=== PATIENT | female | born 1985 | race Caucasian/White ===

== ENCOUNTER 2024-08-16 11:59 | Inpatient (IN) ==
--- NOTE | 2024-08-16 12:08 | ED Triage Note ---
Date of Service August 16, 2024 Provider in Triage Author: Polina Feliciano History of Present Illness This patient was briefly evaluated while in triage. An abbreviated physical exam was performed. This patient is a 39-year-old Female who presents to the ED for evaluation of dyspnea. Pt. referred by PCP. Had leg surgery 06/21/2024. States has been feeling more short of breath over the past few weeks. States was seen by PCP today and referred for possible PE. Physical Exam VITALS: Vitals are noted on the nurse's note and reviewed by myself. GENERAL: This is a 39 year old female, in no acute distress, nondiaphoretic, well-developed well-nourished. SKIN: No obvious rashes, edema, erythema HEAD: Normocephalic atraumatic. EYES: Conjunctivae without injection, sclerae without icterus. NECK: No JVD. LUNGS: No retractions or accessory muscle use. MUSCULOSKELETAL: Normal gait. NEURO: Patient was alert and oriented to person place and time. No focal neurological deficits. Initial orders for labs and / or imaging were placed and patient was placed in the waiting area until a bed is available. Please see further documentation for the full ED course.
--- NOTE | 2024-08-16 12:23 | Emergency Department Note ---
Impression & Plan Sepsis, Multifocal pneumonia, Acute hyponatremia, Acute hypokalemia, Non-ST elevation AL (NSTEMI), Elevated procalcitonin, BRIE (acute kidney injury) ED Provider Note HISTORY OF PRESENT ILLNESS: Patient is a 39-year-old female presenting with shortness of breath and reported hypoxia. Patient was seen at her primary care provider's office today for follow-up because she thought she had mrid-ibdo-gma-mouth disease. She reports that she has been having the sores in her throat and her daughter was having ijhq-gowe-blt-mouth disease. She reports she had sores for about 8 days. Reports that at her follow-up appointment, her doctor was concerned for her breathing and noted that she was slightly hypoxic and referred her to the emergency department. Patient had left ankle repair surgery on 06/21/2024. She denies any OCP use. Denies any DVT or PE history. Reports she has been having shortness of breath over the last 4 days. Reports she sounds wheezy at nighttime per her . She does report she has had a cough of white sputum over the last 3 days. She had a fever of 102 that would not go down with antipyretics over the weekend, per the patient. Her last dose of Tylenol was around 6 AM. She denies any chest pain but does report feeling short of breath. Denies any abdominal pain, nausea or vomiting. Reports feeling lightheaded and having diffuse bodyaches. ROS: as above PHYSICAL EXAM: Constitutional: Patient appears in no acute distress. HENT: Head: Normocephalic and atraumatic. Eyes: EOMI, PERRL Mouth/Throat: Mucous membranes moist. Uvula midline. No tonsillar hypertrophy or exudate. Neck: Trachea midline. Neck supple. Cardiovascular: Tachycardic with regular rhythm. No murmurs, rubs or gallops. Intact distal pulses. Pulmonary/Chest: Conversationally dyspneic. Breath sounds clear and equal bilaterally. No wheezes or rales. Abdominal: Abdomen soft, no tenderness, rebound or guarding. Musculoskeletal: No edema, tenderness or deformity noted. Left foot is in a walking boot. Skin: Warm and dry. No rash, erythema, pallor or cyanosis Psychiatric: Appropriate mood and affect for situation. Neurological: Alert and keenly responsive. CN II-XII grossly intact, moving all extremities equally and fully. MDM: - Vitals signs showed hypotensive and tachycardic. - History obtained via patient. History as above. - Chronic conditions affecting care: None - Differential diagnoses include, but are not limited to: Congestive heart failure; acute coronary syndrome; COPD/asthma exacerbation; pulmonary edema; pulmonary embolism; pneumonia; pneumothorax; viral syndrome - Order placed for continuous cardiac monitoring. At this time, monitor showed rate of 125 bpm with normal sinus rhythm, per my interpretation. - External medical records reviewed. Surgery operative report dated 06/21/2024 was reviewed. Patient had a distal left fibular fracture and underwent ORIF. - EKG interpreted by myself showed normal sinus rhythm. Rate tachycardic at 121 bpm. QT 298. No acute ischemic changes. - Laboratory workup interpreted by myself showed leukocytosis (WBC 11.9) with neutrophil predominance; elevated INR (1.3); hyponatremia (Na 126); normal BNP; normal lactate; hypokalemia (K 3.3); elevated creatinine (Cr 1.64); elevated troponin (48.4); negative hCG; elevated procalcitonin (15.20) - Blood cultures obtained - CT PE showed multifocal airspace opacity consistent with multifocal pneumonia. Trace right pleural effusion. No evidence of PE. - Patient started on IV zosyn for antibiotic coverage - NSTEMI likely type II in etiology from patient's increased respiratory effort and in the setting of her pneumonia. - Given 1500 cc NS. Patient's sepsis fluid volume calculation based on ideal body weight is 1908.90 mL. - Discussion was had with onsite case manager about patient's case and need for admission - Hospitalist, Dr. Jane, consulted for admission - Patient admitted to [facility] service for further evaluation and management. I have personally spent 42 minutes of critical care time in the direct management of this patient. This includes bedside care, interpretation of diagnostic studies, and testing, discussion with consultants, patient, and family members, and other required patient management activities. This 42 minutes is in excess of all separately billable procedures. ASSESSMENT AND PLAN: Diagnosis: Sepsis; multifocal pneumonia; acute hyponatremia; hypokalemia; BRIE; elevated procalcitonin; NSTEMI Plan: Admit Past Med/Surg History Problem List (Updated 08/16/24 @ 15:13 by Precious Quinn MD) BRIE (acute kidney injury) (Acute) Elevated procalcitonin (Acute) Non-ST elevation AL (NSTEMI) (Acute) Acute hypokalemia (Acute) Acute hyponatremia (Acute) Multifocal pneumonia (Acute) Sepsis (Acute) Varicella hx, as child Medical History Anemia hx Anxiety and depression Heart murmur No longer detectable History of COVID-19 summer 2021>no residual symptoms Migraines hx Surgical History History of colposcopy Previous section x 2 [place] teeth extracted Family History Grandmother (Maternal) Breast cancer Denies family history of Ovarian cancer Colorectal cancer Social History Smoking Status: Never smoker Second Hand Exposure: No; Do You Dip or Chew Tobacco: No; Hx Alcohol Use: Yes Alcohol type: wine Hx Substance Use: No Preferred Language: Gabonese Communication Ability: Effective 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 Beliefs That Will Affect Care: None Current Living Situation: Spouse Feels Safe at Home: Yes Assistive Devices: Contacts and Glasses Allergies Allergies Allergy/AdvReac Type Severity Reaction Status Date / Time No Known Allergies Allergy Verified 06/21/24 05:26 Home Meds Home Medications Medication Instructions Recorded Confirmed levonorgestrel 21 mcg/24 hr (up to 1 device intrauterine UD 08/26/19 08/16/24 8 years) 52 mg intrauterine device (Mirena) bupropion HCl 150 mg 24 hr tablet, 150 mg PO QAM 06/17/24 08/16/24 extended release bupropion HCl 300 mg 24 hr tablet, 300 mg PO QAM 06/17/24 08/16/24 extended release Results & Data (ED) Vital Signs Vital Signs - 24 hr 08/16/24 12:06 08/16/24 12:22 08/16/24 12:24 Temperature 37.0 C Temperature Source Temporal Artery Scan Pulse Rate 122 H 121 H 120 H Pulse Rate [Apical] Pulse Rate from SpO2 Sensor 120 H Pulse Strength Normal Respiratory Rate 16 25 H Respiratory Effort / Characteristics Non-Labored Spontaneous Respiratory Depth Normal Respiratory Pattern Regular Blood Pressure 94/52 L Blood Pressure [Right Arm] Blood Pressure Mean 66 Blood Pressure Mean [Right Arm] Blood Pressure Position Sitting Pulse Oximetry 95 95 Oxygen Delivery Method Room Air Sepsis Recent Fever Within 48 Hours No Sepsis New/Unexplained Change in Mental Status No Sepsis Action Taken by Nursing Adv Provider Notified 08/16/24 12:36 08/16/24 12:39 08/16/24 13:00 Temperature Temperature Source Pulse Rate 114 H 116 H Pulse Rate [Apical] Pulse Rate from SpO2 Sensor 114 H 116 H Pulse Strength Respiratory Rate 25 H 28 H Respiratory Effort / Characteristics Respiratory Depth Respiratory Pattern Blood Pressure 113/67 Blood Pressure [Right Arm] Blood Pressure Mean 80 Blood Pressure Mean [Right Arm] Blood Pressure Position Pulse Oximetry 93 94 Oxygen Delivery Method Sepsis Recent Fever Within 48 Hours Sepsis New/Unexplained Change in Mental Status Sepsis Action Taken by Nursing 08/16/24 15:07 Temperature Temperature Source Pulse Rate Pulse Rate [Apical] 123 H Pulse Rate from SpO2 Sensor Pulse Strength Respiratory Rate 26 H Respiratory Effort / Characteristics Labored Respiratory Depth Respiratory Pattern Regular Blood Pressure Blood Pressure [Right Arm] 133/74 Blood Pressure Mean Blood Pressure Mean [Right Arm] 93 Blood Pressure Position Pulse Oximetry 93 Oxygen Delivery Method Room Air Sepsis Recent Fever Within 48 Hours Sepsis New/Unexplained Change in Mental Status Sepsis Action Taken by Nursing Laboratory Data 08/16/24 12:22 08/16/24 12:22 Lab Results 08/16/24 08/16/24 08/16/24 Range/Units 12:22 12:23 12:28 WBC 11.71 H (4.8-10.8) K/ul RBC 3.72 L (4.20-5.40) M/uL Hgb 11.0 L (12.0-16.0) g/dl POC Hgb 12.2 (12.0-16.0) g/dl Hct 31.6 L (37.0-47.0) % POC Hct 36 L (37-47) % MCV 84.9 (80.0-100.0) fL MCH 29.6 (25.0-34.0) pg MCHC 34.8 (32.0-36.0) g/dL RDW Std Deviation 40.9 (36.4-46.3) fL RDW Coeff of Sammy 13.2 (11.5-14.5) % Plt Count 168 (130-400) K/uL MPV 10.5 (9.4-12.4) fL Immature Gran % (Auto) 1.1 % Neut % (Auto) 93.3 % Lymph % (Auto) 2.0 % [place] % (Auto) 3.0 % Eos % (Auto) 0.0 % Baso % (Auto) 0.6 % Neut # (Auto) 10.93 H (1.40-6.50) K/uL Lymph # (Auto) 0.23 L (1.20-3.40) K/uL [place] # (Auto) 0.35 (0.11-0.59) K/uL Eos # (Auto) 0.00 (0.00-0.50) K/uL Baso # (Auto) 0.07 (0.00-0.20) K/uL Immature Gran # (Auto) 0.13 (0.01-0.20) K/uL Toxic Granulation 1+ Polychromasia 1+ Acanthocytes (Spur) 1+ PT 14.0 H (9.0-12.0) Seconds INR 1.3 H (0.9-1.1) APTT 27 (21-31) Seconds PTT Ratio 1.0 POC Sodium 127 L (135-144) mmol/L Sodium 126 L (136-145) mmol/L POC Potassium 3.3 (3.3-5.0) mmol/L Potassium 3.3 L (3.5-5.1) mmol/L POC Chloride 91 L (101-112) mmol/L Chloride 91 L (98-107) mmol/L Carbon Dioxide 22 (21-32) mmol/L POC Total CO2 21 L (24-31) mmol/L Anion Gap 13 H (3-11) POC Anion Gap 19.0 (16-25) mmol/L POC BUN 24 H (7-18) mg/dl BUN 28 H (6-23) mg/dl Creatinine 1.64 H (0.6-1.2) mg/dl POC Creatinine 1.9 H (0.6-1.3) mg/dl Est Cr Clr Drug Dosing 52.5 ml/min eGFR 40.34 BUN/Creatinine Ratio 17.1 (10-20) Glucose 95 (70-99(Fasting)) mg/dl POC Glucose (other) 95 (70-99) mg/dl Lactate (0.4-2.0) mmol/L Calcium 8.4 L (8.6-10.3) mg/dl POC Ioniz Calcium Rylee 1.06 L (1.12-1.32) mmol/l Magnesium 1.8 (1.7-2.4) mg/dl Total Bilirubin 1.4 H (0.2-1.0) mg/dl AST 33 (13-39) U/L ALT 24 (7-52) U/L Alkaline Phosphatase 107 H (34-104) U/L Troponin I High Sens 48.8 H (0-14) pg/ml B-Natriuretic Peptide (0-100) pg/ml Total Protein 6.9 (6.0-8.3) gm/dl Albumin 3.5 (3.4-5.0) gm/dl Globulin 3.4 (2.5-4.0) gm/dl Albumin/Globulin Ratio 1.0 (0.9-2) Procalcitonin (0-0.5) ng/ml HCG, Qual Negative (Negative) Adenovirus (PCR) Not Detected (NotDetected) B. pertussis DNA (PCR) Not Detected (NotDetected) B.parapertussis DNA PCR Not Detected (NotDetected) C. pneumoniae DNA (PCR) Not Detected (NotDetected) Coronavirus OC43 (PCR) Not Detected (NotDetected) Coronavirus HKU1 (PCR) Not Detected (NotDetected) Coronavirus 229E (PCR) Not Detected (NotDetected) SARS-CoV-2 (PCR) Not Detected (NotDetected) Coronavirus NL63 (PCR) Not Detected (NotDetected) Human Metapneumovir PCR Not Detected (NotDetected) Influenza Type A (PCR) Not Detected (NotDetected) Influenza Type B (PCR) Not Detected (NotDetected) M. pneumoniae (PCR) Not Detected (NotDetected) Parainfluenza 1 (PCR) Not Detected (NotDetected) Parainfluenza 2 (PCR) Not Detected (NotDetected) Parainfluenza 3 (PCR) Not Detected (NotDetected) Parainfluenza 4 (PCR) Not Detected (NotDetected) RSV (PCR) Not Detected (NotDetected) Entero/Rhino (PCR) Not Detected (NotDetected) 08/16/24 08/16/24 08/16/24 Range/Units 13:05 13:25 14:27 WBC (4.8-10.8) K/ul RBC (4.20-5.40) M/uL Hgb (12.0-16.0) g/dl POC Hgb (12.0-16.0) g/dl Hct (37.0-47.0) % POC Hct (37-47) % MCV (80.0-100.0) fL MCH (25.0-34.0) pg MCHC (32.0-36.0) g/dL RDW Std Deviation (36.4-46.3) fL RDW Coeff of Sammy (11.5-14.5) % Plt Count (130-400) K/uL MPV (9.4-12.4) fL Immature Gran % (Auto) % Neut % (Auto) % Lymph % (Auto) % [place] % (Auto) % Eos % (Auto) % Baso % (Auto) % Neut # (Auto) (1.40-6.50) K/uL Lymph # (Auto) (1.20-3.40) K/uL [place] # (Auto) (0.11-0.59) K/uL Eos # (Auto) (0.00-0.50) K/uL Baso # (Auto) (0.00-0.20) K/uL Immature Gran # (Auto) (0.01-0.20) K/uL Toxic Granulation Polychromasia Acanthocytes (Spur) PT (9.0-12.0) Seconds INR (0.9-1.1) APTT (21-31) Seconds PTT Ratio POC Sodium (135-144) mmol/L Sodium (136-145) mmol/L POC Potassium (3.3-5.0) mmol/L Potassium (3.5-5.1) mmol/L POC Chloride (101-112) mmol/L Chloride (98-107) mmol/L Carbon Dioxide (21-32) mmol/L POC Total CO2 (24-31) mmol/L Anion Gap (3-11) POC Anion Gap (16-25) mmol/L POC BUN (7-18) mg/dl BUN (6-23) mg/dl Creatinine (0.6-1.2) mg/dl POC Creatinine (0.6-1.3) mg/dl Est Cr Clr Drug Dosing ml/min eGFR BUN/Creatinine Ratio (10-20) Glucose (70-99(Fasting)) mg/dl POC Glucose (other) (70-99) mg/dl Lactate 1.8 (0.4-2.0) mmol/L Calcium (8.6-10.3) mg/dl POC Ioniz Calcium Rylee (1.12-1.32) mmol/l Magnesium (1.7-2.4) mg/dl Total Bilirubin (0.2-1.0) mg/dl AST (13-39) U/L ALT (7-52) U/L Alkaline Phosphatase (34-104) U/L Troponin I High Sens (0-14) pg/ml B-Natriuretic Peptide 72 (0-100) pg/ml Total Protein (6.0-8.3) gm/dl Albumin (3.4-5.0) gm/dl Globulin (2.5-4.0) gm/dl Albumin/Globulin Ratio (0.9-2) Procalcitonin 15.20 H (0-0.5) ng/ml HCG, Qual (Negative) Adenovirus (PCR) (NotDetected) B. pertussis DNA (PCR) (NotDetected) B.parapertussis DNA PCR (NotDetected) C. pneumoniae DNA (PCR) (NotDetected) Coronavirus OC43 (PCR) (NotDetected) Coronavirus HKU1 (PCR) (NotDetected) Coronavirus 229E (PCR) (NotDetected) SARS-CoV-2 (PCR) (NotDetected) Coronavirus NL63 (PCR) (NotDetected) Human Metapneumovir PCR (NotDetected) Influenza Type A (PCR) (NotDetected) Influenza Type B (PCR) (NotDetected) M. pneumoniae (PCR) (NotDetected) Parainfluenza 1 (PCR) (NotDetected) Parainfluenza 2 (PCR) (NotDetected) Parainfluenza 3 (PCR) (NotDetected) Parainfluenza 4 (PCR) (NotDetected) RSV (PCR) (NotDetected) Entero/Rhino (PCR) (NotDetected) Administered Medications Discontinued Medications Azithromycin (Azithromycin 250 Mg Tab) 500 mg PO NOW ONE Stop: 08/16/24 13:05 Last Admin: 08/16/24 13:43 Dose: Not Given Documented By: FRANCISCO Ceftriaxone Sodium (Rocephin) 2,000 mg in 50 mls @ 100 mls/hr IV NOW STA Stop: 08/16/24 13:33 Last Admin: 08/16/24 13:43 Dose: Not Given Documented By: FRANCISCO Piperacillin Sod/Tazobactam Sod (Zosyn) 4.5 gm in 100 mls @ 200 mls/hr IV NOW ONE; Protocol Stop: 08/16/24 13:36 Last Infusion: 08/16/24 15:08 Dose: Infused Documented By: Admin: 08/16/24 14:29 Dose: 200 mls/hr Documented By: FRANTZ Sodium Chloride (Nss) 1,000 mls @ 999 mls/hr IV .Q1H1M ONE Stop: 08/16/24 14:08 Last Infusion: 08/16/24 15:08 Dose: Infused Documented By: Admin: 08/16/24 13:32 Dose: 999 mls/hr Documented By: FRANCISCO Sodium Chloride (Nss) 500 mls @ 999 mls/hr IV .Q31M ONE Stop: 08/16/24 13:38 Last Infusion: 08/16/24 14:29 Dose: Infused Documented By: Admin: 08/16/24 13:32 Dose: 999 mls/hr Documented By: FRANCISCO Ioversol (Optiray 320 125ml) 118 ml IV ONCE ONE Stop: 08/16/24 12:46 Last Admin: 08/16/24 12:45 Dose: 118 ml Documented By: GALEN Imaging Data Radiologist's Impression: Chest CTA 08/16/24 12:08 CT angio chest PE protocol CLINICAL HISTORY: Dyspnea, tachycardia, recent surgery TECHNIQUE: Multidetector row helical CT of the chest was performed with angiographic protocol. Coronal and sagittal reformations were obtained. Coronal and sagittal MIPS were obtained from the axial data set and were submitted for review. Automated dose lowering techniques and/or adjustment according to patient size were utilized for this exam. CT DOSE: 630.05 mGy.cm Comparison: None available at the time of this dictation. FINDINGS: Lungs and pleura: Multifocal airspace opacities are seen most prominently in the right lung and lingula. Trace right pleural effusion. Heart and pericardium: Heart size is normal. No pericardial effusion. Vessels: No evidence of pulmonary embolism. Mediastinum and yesenia: Subcentimeter lymph nodes are seen. Chest wall and lower neck: Small thyroid nodules are noted which do not require follow-up by ACR criteria. Subcentimeter subcentimeter cervical nodes are seen. Abdomen: Unremarkable. Bones: Minimal degenerative changes are seen. IMPRESSION: 1. Multifocal airspace opacities are seen compatible with multifocal pneumonia. Follow-up to resolution is recommended. 2. No evidence of pulmonary bolus. 3. Trace right pleural effusion. ACT 112: Negative or not required by law. Electronically signed by: Prince Kumar M.D. 08/16/2024 12:59 PM Discharge Plan Visit Data Chief Complaint: Referred by Doctor Stated Complaint: PULMONARY EMBOLSIM ED Provider: Precious Quinn Discharge Problem: Sepsis, Multifocal pneumonia, Acute hyponatremia, Acute hypokalemia, Non-ST elevation AL (NSTEMI), Elevated procalcitonin, BRIE (acute kidney injury) Forms Stand Alone Forms: [employer] Prescriptions Prescriptions: No Action Mirena 20 mcg/24 hours (5 yrs) 52 mg intrauterine device 1 device IU UD bupropion HCl 300 mg tablet extended release 24 hr 300 mg PO QAM bupropion HCl 150 mg tablet extended release 24 hr 150 mg PO QAM Referrals Referrals: Zane Peña [Primary Care Provider] -
[2024-08-16] MEDS: OPTIRAY 320 125ml IV ONE (12:45)
[2024-08-16 12:47] LABS: iSTAT Creatinine 1.9 mg/dl (0.6-1.3); iSTAT Hemoglobin 12.2 g/dl (12.0-16.0); iSTAT Ionized Calcium 1.06 mmol/l (1.12-1.32); iSTAT Potassium 3.3 mmol/L (3.3-5.0)
[2024-08-16 12:59] LABS: Pregnancy Test, Serum Negative (Negative)
--- NOTE | 2024-08-16 13:00 | CT Scan Report ---
CT angio chest PE protocol CLINICAL HISTORY: Dyspnea, tachycardia, recent surgery TECHNIQUE: Multidetector row helical CT of the chest was performed with angiographic protocol. Vieira l and sagittal reformations were obtained. Coronal and sagittal MIPS were obtained from the axial dee a set and were submitted for review. Automated dose lowering techniques and/or adjustment according to patient size were utilized for this exam. CT DOSE: 630.05 mGy.cm Comparison: None available at the time of this dictation. FINDINGS: Lungs and pleura: Multifocal airspace opacities are seen most prominently in the right lung and lingu la. Trace right pleural effusion. Heart and pericardium: Heart size is normal. No pericardial effusion. Vessels: No evidence of pulmonary embolism. Mediastinum and yesenia: Subcentimeter lymph nodes are seen. Chest wall and lower neck: Small thyroid nodules are noted which do not require follow-up by ACR bernice martinez. Subcentimeter subcentimeter cervical nodes are seen. Abdomen: Unremarkable. Bones: Minimal degenerative changes are seen. IMPRESSION: 1. Multifocal airspace opacities are seen compatible with multifocal pneumonia. Follow-up to [facility] ion is recommended. 2. No evidence of pulmonary bolus. 3. Trace right pleural effusion. ACT 112: Negative or not required by law. Electronically signed by: Prince Kumar M.D. 08/16/2024 12:59 PM
[2024-08-16 13:14] LABS: Hematocrit (blood only) 31.6 % (37.0-47.0); Mean Corpuscular Hemoglobin 29.6 pg (25.0-34.0); Mean Corpuscular Hgb Conc 34.8 g/dL (32.0-36.0); Mean Corpuscular Volume 84.9 fL (80.0-100.0); Mean Platelet Volume 10.5 fL (9.4-12.4); Platelet Count 168 K/uL (130-400); RDW Coefficient of Variation 13.2 % (11.5-14.5); RDW Standard Deviation 40.9 fL (36.4-46.3); Red Blood Count 3.72 M/uL (4.20-5.40); White Blood Count 11.71 K/ul (4.8-10.8)
[2024-08-16 13:15] LABS: Acanthocytes 1+; Basophils # (auto) 0.07 K/uL (0.00-0.20); Basophils % (auto) 0.6 %; Immature Granulocytes # (auto) 0.13 K/uL (0.01-0.20); Immature Granulocytes % (auto) 1.1 %; Lymphocytes # (auto) 0.23 K/uL (1.20-3.40); Monocytes # (auto) 0.35 K/uL (0.11-0.59); Neutrophils # (auto) 10.93 K/uL (1.40-6.50); Neutrophils % (auto) 93.3 %; Polychromasia 1+; Toxic Granulation 1+
[2024-08-16 13:16] LABS: INR 1.3 (0.9-1.1); Partial Thromboplastin Time 27 Seconds (21-31)
[2024-08-16 13:17] LABS: Albumin Level 3.5 gm/dl (3.4-5.0); BUN Creatinine Ratio 17.1 (10-20); Bilirubin,Total 1.4 mg/dl (0.2-1.0); Calcium 8.4 mg/dl (8.6-10.3); Creatinine Clr Calc Pharmacy 52.5 ml/min; Globulin 3.4 gm/dl (2.5-4.0); Potassium 3.3 mmol/L (3.5-5.1); Total Protein 6.9 gm/dl (6.0-8.3)
[2024-08-16 13:23] LABS: Troponin I High Sensitivity 48.8 pg/ml (0-14)
[2024-08-16] MEDS: SODIUM CHLORIDE 0.9% 500 ML IV ONE (13:32)
[2024-08-16] MEDS: SODIUM CHLORIDE 0.9% 1,000 ML IV ONE (13:32)
[2024-08-16] MEDS: AZITHROMYCIN 250 MG TAB PO ONE (13:43)
[2024-08-16] MEDS: cefTRIAXone SODIUM 2,000 MG/50 ML BAG IV STA (13:43)
[2024-08-16 14:17] LABS: Magnesium 1.8 mg/dl (1.7-2.4)
[2024-08-16 14:18] LABS: Adenovirus PCR Not Detected (NotDetected); Bordetella parapertussis PCR Not Detected (NotDetected); Bordetella pertussis PCR Not Detected (NotDetected); Chlamydia pneumoniae PCR Not Detected (NotDetected); Coronavirus 229E PCR Not Detected (NotDetected); Coronavirus CoV-2 (COVID19)PCR Not Detected (NotDetected); Coronavirus HKU1 PCR Not Detected (NotDetected); Coronavirus NL63 PCR Not Detected (NotDetected); Coronavirus OC43PCR Not Detected (NotDetected); Human Metapneumovirus PCR Not Detected (NotDetected); Influenza A PCR Not Detected (NotDetected); Influenza B PCR Not Detected (NotDetected); Mycoplasma pneumoniae PCR Not Detected (NotDetected); Parainfluenza Virus 1 PCR Not Detected (NotDetected); Parainfluenza Virus 2 PCR Not Detected (NotDetected); Parainfluenza Virus 3 PCR Not Detected (NotDetected); Parainfluenza Virus 4 PCR Not Detected (NotDetected); Respiratory Syncytial VirusPCR Not Detected (NotDetected); Rhinovirus/Enterovirus PCR Not Detected (NotDetected)
[2024-08-16] MEDS: PIPERACILLIN/TAZOBACTAM 4.5 GM/100 ML BAG IV ONE (14:29)
--- NOTE | 2024-08-16 15:38 | History & Physical Report ---
Date of Service August 16, 2024 Assessment & Plan (1) Multifocal pneumonia: (2) Acute hyponatremia: (3) Acute hypokalemia: (4) Renal insufficiency: Plan The patient is a 39-year-old female with a past medical history including depression. The patient presents to the emergency department with 3 to 4 days of progressively worsening shortness of breath, dyspnea on exertion. Patient was seen at the PCPs office earlier in the day today, due to concerns regarding possible iodp-qmyt-afu-mouth disease. She was found of sores in her throat. She has had progressively worsening shortness of breath over the past 4 days. Due to concerns regarding worsening shortness of breath and cough productive of white sputum over the past 3 days, and a temperature of 102 F she presented to the ED for assessment today. In ED, patient had a CTA PE protocol that was negative for PE, did she did but did show an extensive right-sided pneumonia, and she was then referred for evaluation for admission Multifocal pneumonia- Primarily involving right lung May be a postobstructive component Linezolid 600 mg IV every 12 hours Zosyn 4.5 g IV every 8 hours Mucinex 600 mg p.o. every 12 hours DuoNebs 4 times daily, and every 2 hours as needed Azithromycin 500 mg p.o. every morning Sputum Gram stain and culture MRSA swab BioFire negative Consult pulmonology Renal insufficiency/hyponatremia/hypokalemia- Creatinine 1.64, with unknown baseline, presumptively acute kidney injury Given a total of 1.5 L normal saline bolus from the ED Placed on NSS at 80 mL/h x 1 additional liter Repeat laboratories in the a.m. Hypomagnesemia- Magnesium 1.8 on admission, give 1 g mag sulfate IV and recheck laboratories in the a.m. History of Present Illness Chief Complaint: The patient presents to the emergency department with 3 to 4 days of progressively worsening shortness of breath, dyspnea on exertion. Patient was seen at the PCPs office earlier in the day today, due to concerns regarding possible wuos-wxze-ftm-mouth disease. She was found of sores in her throat. She has had progressively worsening shortness of breath over the past 4 days. Due to concerns regarding worsening shortness of breath and cough productive of white sputum over the past 3 days, and a temperature of 102 F she presented to the ED for assessment today. In ED, patient had a CTA PE protocol that was negative for PE, did she did but did show an extensive right-sided pneumonia, and she was then referred for evaluation for admission Primary Care Provider: Zane Peña The patient is a 39-year-old female with a past medical history including depression. The patient presents to the emergency department with 3 to 4 days of progressively worsening shortness of breath, dyspnea on exertion. Patient was seen at the PCPs office earlier in the day today, due to concerns regarding possible dpfc-lbif-fba-mouth disease. She was found of sores in her throat. She has had progressively worsening shortness of breath over the past 4 days. Due to concerns regarding worsening shortness of breath and cough productive of white sputum over the past 3 days, and a temperature of 102 F she presented to the ED for assessment today. In ED, patient had a CTA PE protocol that was negative for PE, did she did but did show an extensive right-sided pneumonia, and she was then referred for evaluation for admission Allergies Allergy/AdvReac Type Severity Reaction Status Date / Time No Known Allergies Allergy Verified 06/21/24 05:26 Home Medications Medication Instructions Recorded Confirmed Type levonorgestrel 21 mcg/24 hr (up to 1 device intrauterine UD 08/26/19 08/16/24 History 8 years) 52 mg intrauterine device (Mirena) bupropion HCl 150 mg 24 hr tablet, 150 mg PO QAM 06/17/24 08/16/24 History extended release bupropion HCl 300 mg 24 hr tablet, 300 mg PO QAM 06/17/24 08/16/24 History extended release Past Med/Surg History Problem List (Updated 08/16/24 @ 16:24 by Alok Jane MD) Renal insufficiency BRIE (acute kidney injury) (Acute) Elevated procalcitonin (Acute) Non-ST elevation W[place] (NSTEMI) (Acute) Acute hypokalemia (Acute) Acute hyponatremia (Acute) Multifocal pneumonia (Acute) Sepsis (Acute) Varicella hx, as child Medical History Anemia hx Anxiety and depression Heart murmur No longer detectable History of COVID-19 summer 2021>no residual symptoms Migraines hx Surgical History History of colposcopy Previous section x 2 Haiku teeth extracted Family History Grandmother (Maternal) Breast cancer Denies family history of Ovarian cancer Colorectal cancer Social History Smoking Status: Never smoker Second Hand Exposure: No; Do You Dip or Chew Tobacco: No; Hx Alcohol Use: Yes Alcohol type: wine Hx Substance Use: No Preferred Language: Sudanese Communication Ability: Effective Plastics Worker Required: No Beliefs That Will Affect Care: None Current Living Situation: Spouse Feels Safe at Home: Yes Assistive Devices: Contacts and Glasses Review of Systems Review of Systems: The patient denies palpitations, lower extremity swelling, nausea, vomiting, diarrhea , constipation, abdominal pain, pelvic pain, blood in urine or stool, dysuria, urinary frequency or urgency, lightheadedness, dizziness, headache, memory loss, loss of consciousness, abnormal bruising or bleeding, imbalance, focal or generalized weakness, numbness or tingling in arms or legs, generalized arthralgias or myalgias, back or neck pain, or night sweats. The review of systems is otherwise negative other than for that already noted above, and at least 10 systems have been reviewed. Physical Exam Physical Exam: The patient is awake, alert and oriented 3, well developed and well nourished, normocephalic and atraumatic, lying in bed and in no acute distress. HEENT--PERRL, EOMI, mucous membranes and oropharynx sores noted Neck--supple. No JVD. No bruits. Thyroid normal, trachea midline, no adenopathy. Heart--normal S1 and S2. No murmurs, rubs or gallops. Lungs--coarse breath sounds on the right no respiratory distress, no accessory muscle use. Abdomen--normal bowel sounds and soft. Nontender. Nondistended, no hernias or masses, no organomegaly. Extremities--no cyanosis or clubbing. No edema. There are good distal pulses b/l. Dermatologic--normal skin turgor, normal color, no abnormal lymph nodes, no rash. Neurologic--cranial nerves II through XII grossly intact. Rheumatologic--normal range of motion. Psychiatric--normal affect. Results & Data Results & Data Vital Signs (Past 12 Hours) Vital Signs Temp Pulse Pulse Resp BP BP Pulse Ox 08/16/24 15:07 123 H 26 H 133/74 93 08/16/24 13:00 113/67 08/16/24 12:39 116 H 28 H 94 08/16/24 12:36 114 H 25 H 93 08/16/24 12:24 120 H 25 H 95 08/16/24 12:22 121 H 08/16/24 12:06 37.0 C 122 H 16 94/52 L 95 O2 Del Method 08/16/24 15:07 Room Air 08/16/24 13:00 08/16/24 12:39 08/16/24 12:36 08/16/24 12:24 08/16/24 12:22 08/16/24 12:06 Room Air Laboratory Results Laboratory Results WBC 11.71 K/ul (4.8-10.8) H 08/16/24 12:22 RBC 3.72 M/uL (4.20-5.40) L 08/16/24 12:22 Hgb 11.0 g/dl (12.0-16.0) L 08/16/24 12:22 POC Hgb 12.2 g/dl (12.0-16.0) 08/16/24 12:28 Hct 31.6 % (37.0-47.0) L 08/16/24 12:22 POC Hct 36 % (37-47) L 08/16/24 12:28 MCV 84.9 fL (80.0-100.0) 08/16/24 12:22 MCH 29.6 pg (25.0-34.0) 08/16/24 12:22 MCHC 34.8 g/dL (32.0-36.0) 08/16/24 12:22 RDW Std Deviation 40.9 fL (36.4-46.3) 08/16/24 12:22 RDW Coeff of Sammy 13.2 % (11.5-14.5) 08/16/24 12:22 Plt Count 168 K/uL (130-400) 08/16/24 12:22 MPV 10.5 fL (9.4-12.4) 08/16/24 12:22 Immature Gran % (Auto) 1.1 % 08/16/24 12:22 Neut % (Auto) 93.3 % 08/16/24 12:22 Lymph % (Auto) 2.0 % 08/16/24 12:22 Guadalupe % (Auto) 3.0 % 08/16/24 12:22 Eos % (Auto) 0.0 % 08/16/24 12:22 Baso % (Auto) 0.6 % 08/16/24 12:22 Neut # (Auto) 10.93 K/uL (1.40-6.50) H 08/16/24 12:22 Lymph # (Auto) 0.23 K/uL (1.20-3.40) L 08/16/24 12:22 Guadalupe # (Auto) 0.35 K/uL (0.11-0.59) 08/16/24 12:22 Eos # (Auto) 0.00 K/uL (0.00-0.50) 08/16/24 12:22 Baso # (Auto) 0.07 K/uL (0.00-0.20) 08/16/24 12:22 Immature Gran # (Auto) 0.13 K/uL (0.01-0.20) 08/16/24 12:22 Toxic Granulation 1+ 08/16/24 12:22 Polychromasia 1+ 08/16/24 12:22 Acanthocytes (Spur) 1+ 08/16/24 12:22 PT 14.0 Seconds (9.0-12.0) H 08/16/24 12:22 INR 1.3 (0.9-1.1) H 08/16/24 12:22 APTT 27 Seconds (21-31) 08/16/24 12:22 PTT Ratio 1.0 08/16/24 12:22 POC Sodium 127 mmol/L (135-144) L 08/16/24 12:28 Sodium 126 mmol/L (136-145) L 08/16/24 12:22 POC Potassium 3.3 mmol/L (3.3-5.0) 08/16/24 12:28 Potassium 3.3 mmol/L (3.5-5.1) L 08/16/24 12:22 POC Chloride 91 mmol/L (101-112) L 08/16/24 12:28 Chloride 91 mmol/L (98-107) L 08/16/24 12:22 Carbon Dioxide 22 mmol/L (21-32) 08/16/24 12:22 POC Total CO2 21 mmol/L (24-31) L 08/16/24 12:28 Anion Gap 13 (3-11) H 08/16/24 12:22 POC Anion Gap 19.0 mmol/L (16-25) 08/16/24 12:28 POC BUN 24 mg/dl (7-18) H 08/16/24 12:28 BUN 28 mg/dl (6-23) H 08/16/24 12:22 Creatinine 1.64 mg/dl (0.6-1.2) H 08/16/24 12:22 POC Creatinine 1.9 mg/dl (0.6-1.3) H 08/16/24 12:28 Est Cr Clr Drug Dosing 52.5 ml/min 08/16/24 12:22 eGFR 40.34 08/16/24 12:22 BUN/Creatinine Ratio 17.1 (10-20) 08/16/24 12:22 Glucose 95 mg/dl (70-99(Fasting)) 08/16/24 12:22 POC Glucose (other) 95 mg/dl (70-99) 08/16/24 12:28 Lactate 1.8 mmol/L (0.4-2.0) 08/16/24 13:05 Calcium 8.4 mg/dl (8.6-10.3) L 08/16/24 12:22 POC Ioniz Calcium Rylee 1.06 mmol/l (1.12-1.32) L 08/16/24 12:28 Magnesium 1.8 mg/dl (1.7-2.4) 08/16/24 12:22 Total Bilirubin 1.4 mg/dl (0.2-1.0) H 08/16/24 12:22 AST 33 U/L (13-39) 08/16/24 12:22 ALT 24 U/L (7-52) 08/16/24 12:22 Alkaline Phosphatase 107 U/L (34-104) H 08/16/24 12:22 Troponin I High Sens 6.3 pg/ml (0-14) D 08/16/24 14:22 B-Natriuretic Peptide 72 pg/ml (0-100) 08/16/24 13:25 Total Protein 6.9 gm/dl (6.0-8.3) 08/16/24 12:22 Albumin 3.5 gm/dl (3.4-5.0) 08/16/24 12:22 Globulin 3.4 gm/dl (2.5-4.0) 08/16/24 12:22 Albumin/Globulin Ratio 1.0 (0.9-2) 08/16/24 12:22 Procalcitonin 15.20 ng/ml (0-0.5) H 08/16/24 14:27 HCG, Qual Negative (Negative) 08/16/24 12:22 Adenovirus (PCR) Not Detected (NotDetected) 08/16/24 12:23 B. pertussis DNA (PCR) Not Detected (NotDetected) 08/16/24 12:23 B.parapertussis DNA PCR Not Detected (NotDetected) 08/16/24 12:23 C. pneumoniae DNA (PCR) Not Detected (NotDetected) 08/16/24 12:23 Coronavirus OC43 (PCR) Not Detected (NotDetected) 08/16/24 12:23 Coronavirus HKU1 (PCR) Not Detected (NotDetected) 08/16/24 12:23 Coronavirus 229E (PCR) Not Detected (NotDetected) 08/16/24 12:23 SARS-CoV-2 (PCR) Not Detected (NotDetected) 08/16/24 12:23 Coronavirus NL63 (PCR) Not Detected (NotDetected) 08/16/24 12:23 Human Metapneumovir PCR Not Detected (NotDetected) 08/16/24 12:23 Influenza Type A (PCR) Not Detected (NotDetected) 08/16/24 12:23 Influenza Type B (PCR) Not Detected (NotDetected) 08/16/24 12:23 M. pneumoniae (PCR) Not Detected (NotDetected) 08/16/24 12:23 Parainfluenza 1 (PCR) Not Detected (NotDetected) 08/16/24 12:23 Parainfluenza 2 (PCR) Not Detected (NotDetected) 08/16/24 12:23 Parainfluenza 3 (PCR) Not Detected (NotDetected) 08/16/24 12:23 Parainfluenza 4 (PCR) Not Detected (NotDetected) 08/16/24 12:23 RSV (PCR) Not Detected (NotDetected) 08/16/24 12:23 Entero/Rhino (PCR) Not Detected (NotDetected) 08/16/24 12:23 Impressions Chest CTA 08/16/24 12:08 CT angio chest PE protocol CLINICAL HISTORY: Dyspnea, tachycardia, recent surgery TECHNIQUE: Multidetector row helical CT of the chest was performed with angiographic protocol. Coronal and sagittal reformations were obtained. Coronal and sagittal MIPS were obtained from the axial data set and were submitted for review. Automated dose lowering techniques and/or adjustment according to patient size were utilized for this exam. CT DOSE: 630.05 mGy.cm Comparison: None available at the time of this dictation. FINDINGS: Lungs and pleura: Multifocal airspace opacities are seen most prominently in the right lung and lingula. Trace right pleural effusion. Heart and pericardium: Heart size is normal. No pericardial effusion. Vessels: No evidence of pulmonary embolism. Mediastinum and yesenia: Subcentimeter lymph nodes are seen. Chest wall and lower neck: Small thyroid nodules are noted which do not require follow-up by ACR criteria. Subcentimeter subcentimeter cervical nodes are seen. Abdomen: Unremarkable. Bones: Minimal degenerative changes are seen. IMPRESSION: 1. Multifocal airspace opacities are seen compatible with multifocal pneumonia. Follow-up to resolution is recommended. 2. No evidence of pulmonary bolus. 3. Trace right pleural effusion. ACT 112: Negative or not required by law. Electronically signed by: Prince Kumar M.D. 08/16/2024 12:59 PM Code Status & VTE Plan Code Status Full code VTE Prophylaxis Plan VTE Prophylaxis will be ordered: Yes PG Care Time/CCT Total # of Minutes Spent Total Time Spent with Patient: Total time spent is greater than 50% in coordination of care (as documented) at patient's floor/unit and/or counseling patient: Coding Level of Care Code 37561 INT INP/OBS CARE 3/75MIN Diagnoses Multifocal pneumonia J18.9 Acute hyponatremia E87.1 Acute hypokalemia E87.6 Renal insufficiency N28.9
[2024-08-16] MEDS: MAGNESIUM SULFATE / D5W 1 GM/100 ML BAG IV ONE (16:10)
[2024-08-16] MEDS: LINEZOLID 600 MG/300 ML BAG IV SCH (16:14)
--- NOTE | 2024-08-16 16:16 | Electrocardiogram Report ---
Test Reason : Blood Pressure : */* mmHG Vent. Rate : 121 BPM Atrial Rate : 121 BPM P-R Int : 156 ms QRS Dur : 84 ms QT Int : 298 ms P-R-T Axes : 67 49 48 degrees QTcB Int : 423 ms Sinus tachycardia Diffuse Minor Nonspecific ST abnormality Abnormal ECG No previous ECGs available Confirmed by Abhijeet Scruggs ([id number]) on 08/16/2024 4:15:39 PM Referred By: REFERRED SELF Confirmed By: Abhijeet Scruggs
[2024-08-16] MEDS: ALBUT/IPRATROP 3MG/0.5MG NEB 3 ML VIAL NEB PRN (16:29)
[2024-08-16] MEDS: NSS + 20MEQ KCL 20 MEQ/1,000 ML BAG IV SCH (16:36)
[2024-08-16] MEDS: SODIUM CHLORIDE 0.9% 1,000 ML IV SCH (17:47)
[2024-08-16] MEDS: ACETAMINOPHEN 500 MG TAB PO STA (17:47)
[2024-08-16] MEDS: ALBUT/IPRATROP 3MG/0.5MG NEB 3 ML VIAL NEB SCH (19:13)
[2024-08-16 19:18] LABS: Appearance Urine Clear (Clear); Bacteria Urine Automated None Seen (None Seen); Bilirubin Urine Negative (Negative); Blood Urine 2+ (Negative); Cast Urine Automated 0-2 /lpf (0-2); Color Urine Yellow; Epithelial Cell Urine Auto 0-2 /hpf (0-2); Glucose Urine UA Negative (Negative); Ketones Urine Trace (Negative); Leukocyte Esterase Urine Negative (Negative); Nitrite Urine Negative (Negative); Protein Urine 2+ (Negative); RBC Urine Automated 0-2 /hpf (0-2); Specific Gravity Urine 1.028 (1.000-1.030); Urobilinogen Urine Negative (Negative); WBC Urine Automated 0-5 /hpf (0-5); pH Urine 5.5 (4.5-7.5)
[2024-08-16] MEDS: PIPERACILLIN/TAZOBACTAM 4.5 GM/100 ML BAG IV SCH (20:55)
--- OUTSIDE RECORDS SUMMARY | 2024-08-16 20:55 | External Medical Summary | Continuity of Care Document ---
Author Name Unknown Organization [place] [id number] Address [address] [place] [id number] Care Team Providers Care Preassembler Printed Circuit Board Name Role Phone Zane Peña Primary Care Physician [phone] [id number] Date[facility] 08/08/24 - 08/08/24 [facility] [address] [place] [id number] [facility] Medicine [address] [place] [id number] Encounter Diagnosis Fracture of distal fibula(Discharge Diagnosis) - 08/08/24 Discharge Disposition: Home or Self Care Attending Physician: MD Марина, Yariel Mccoy Allergies, Adverse Reactions, Alerts No Known Allergies Medications Mirena 52 mg intrauterine device Start: 06/17/24 9:18:00 AM EST, 1 each, intrauterine, ONCE Start Date: 06/17/24 Status: Ordered oxyCODONE 5 mg oral tablet Start: 06/17/24 9:18:00 AM EST, 1 tab, PO, q6h, Refills: 0, PRN: as needed for pain Start Date: 06/17/24 Status: Ordered oxyCODONE 5 mg oral tablet Start: 06/17/24 2:56:00 PM EST, 1 tab, PO, q4h, Disp# 18 tab, Refills: 0, Note to Pharmacy: initial therapy, PRN: as needed for pain, [id number] Start Date: 06/17/24 Status: Ordered Wellbutrin Start: 06/17/24 9:17:00 AM EST Start Date: 06/17/24 Status: Ordered Mental Status 08/08/24 Barriers to Learning one year None evide nt Mandatory Health Literacy Documentation Yes Health Literacy Communication Barriers N ever Primary Language Togolese Problem List Condition Confirmation Course Effective Dates Status Health St atus Informant Fracture of distal fibula Confirmed Active Left knee injury Confirmed Active Diagnosis Diagnosis Type Effective Dates Health Status Cl inical Service Informant Fracture of distal fibula Discharge Diagnosis 08/08/24 Non-Specified Procedures Procedure Date Related Diagnosis Body Site Status ORIF - Open reduction of fra cture of ankle with internal fixation 1 06/21/24 C ompleted 1Left Social History Social History Type Response Smoking Status Never smoked cigaret sandro Sex Female Sex Representation Female (finding) Ortho Outpt Note * Devon Mims: PERFORM, MODIFY, MODIFY MD Parish Paul S: MODIFY Event Display: Ortho Outpt Note Authored Date: [id number] Name:RIGOBERTO BLEVINS Patient Number:[id number] :1985 Date of Service:08/08/2024 CHIEF COMPLAINT: Follow-up s/pleft ankle ORIF; DOS: 06/21/2024 HPI: [id number] yearSenia presents today forthe above noted procedure. She states that pain is minimal but she has some swelling if she is active for too long. She hasbeen walking with the boot, and has been attending physical therapy. PHYSICAL EXAM: Focusing on the patient'sLEFT lower extremity: 5/5 strength: ankle dorsiflexion, plantarflexion, and eversion Slightswelling Incisions well healed Minor loss of ankle and subtalar movement No tenderness. Ambulates well with boot and single-point crutch. DIAGNOSTIC REVIEW: I obtained and personally interpreted3 views of the left ankle which shows plate and screws on lateral malleolus. Ankle mortise and syndesmosis are intact. Alignment anatomic. Fracture not visualized, otherwise negative. IMPRESSION:7 weeks s/p left ankle ORIF PLAN: Progress with boot, weaning off of crutches and bootto a regular shoe eventually, progressing with Physical therapist guidelines. She can start to increase activity with physical therapist guidelines afterwards. Continue with PT per protocol and progressing weightbearing. Follow-up in 6 weeks. With x-ray ATTESTATION: Devon Pantoja, have scribed for, and in the presence of, Yariel Parish, on this date,08/08/2024 12:26:14. Electronic Signature on File Electronically Reviewed/Signed by: Devon Mims Author Signature Dt/Tm:08/08/2024 02:29 PM Electronically Reviewed/Signed by: MD Kalina Figueroa Signature Dt/Tm: 08/08/2024 02:32 PM Division of Sports Medicine [facility] Patient Care team information Care Team Personnel Name: DO Peña Brian Rodger Position: Referring Member Role: Primary Care Provider Address: [address]
--- OUTSIDE RECORDS SUMMARY | 2024-08-16 20:55 | External Medical Summary | Continuity of Care Document ---
Author Name Unknown Organization [place] [place] [id number] Address [address] [place] [id number] Care Team Providers Care Drinking Water Technician Name Role Phone Zane Peña Primary Care Physician [phone] [id number] Date(s): 08/08/24 - 08/08/24 [facility] [address] [place] [id number] [facility] Medicine [address] [place] [phone] Encounter Diagnosis Fracture of distal fibula(Discharge Diagnosis) [...] PRN: as needed for pain, [id number] Start Date: 06/17/24 Status: Ordered Wellbutrin Start: 06/17/24 9:17:00 AM EST Start Date: 06/17/24 Status: Ordered Mental Status 08/08/24 Barriers to Learning one year None evide nt Mandatory Health Literacy Documentation Yes Health Literacy Communication Barriers N ever Primary Language Comoran Problem List Condition Confirmation Course Effective Dates [...] Event Display: Ortho Outpt Note Authored Date: [id number] Name:RIGOBERTO BLEVINS Patient Number:[id number] :1985 Date of Service:08/08/2024 CHIEF COMPLAINT: Follow-up s/pleft ankle ORIF; DOS: 06/21/2024 HPI: [id number] yearSenia presents today forthe above noted procedure. [...] Referring Member Role: Primary Care Provider Address: [address]
[2024-08-16] MEDS: guaiFENesin 600 MG TABCR PO SCH (21:44)
[2024-08-17] MEDS: ACETAMINOPHEN 325 MG TAB PO PRN (03:47)
[2024-08-17] MEDS: POTASSIUM CHLORIDE CRTAB 20 MEQ TABCR PO STA (04:17)
--- NOTE | 2024-08-17 06:53 | Hospitalist Progress Note ---
Date of Service August 17, 2024 Assessment & Plan (1) Multifocal pneumonia: (2) BRIE (acute kidney injury): (3) Hypoxemia: Plan The patient is a 39-year-old female with a past medical history including depression. The patient presents to the emergency department with 3 to 4 days of progressively worsening shortness of breath, dyspnea on exertion. Patient was seen at her PCPs the day of admission, due to concerns regarding possible oscf-lskw-eiv-mouth disease. She was found of sores in her throat. She has had progressively worsening shortness of breath over the past 4 days. Due to concerns regarding worsening shortness of breath and cough productive of white sputum over the past 3 days, and a temperature of 102 F she presented to the ED for assessment on 08/16/2024. In ED, patient had a CTA PE protocol that was negative for PE but was notable for an extensive right-sided pneumonia. She was then admitted. #Multifocal pneumonia #Sepsis #Diarrhea - SIRS Criteria: Tachycardia, Fever + hypotension - CTA of the chest negative for PE + notable for right lung pneumonia -- Cannot rule out obstructive component - Linezolid 600 mg IV every 12 hours for 24 hours - Pip-Tazo 4.5 mg IV suraj 8 hours for 24 hours - Azithromycin 500 mg PO (08/17) -- Azithromycin 250 mg PO QD (08/17-08/22) - Ceftriaxone 2000 mg QD (08/17 - 08/22) - Sputum gram stain and culture: needs collected - Blood cultures negative - MRSA Nares negative - Biofire negative - Legionella panel pending - Stool Biofire ordered - Pulmonology following - Leukocytosis (11.71 - 11.91) - Procalcitonin (15.20) #Renal insufficiency #Hyponatremia/Hypokalemia/Hypocalcemia - Creatinine 1.64 on admission: given 1.5 L of NS in ED -- 08/17 0.94 - Placed on NSS at 80 mL/h x 1 additional liter -- Na (126 - 131) -- K (3.3 - 3.1) -- Ca (8.4 - 7.6) - Repeat laboratories in the a.m. #Anemia - RBC: (3.72 on admission) 3.37 M/uL (08/17) - HCT: (31.6% on admission) 28.6% (08/17) #Hypomagnesemia - Magnesium 1.8 on admission give 1 g mag sulfate IV FEN: Ragular Code status: full code DVT ppx: ambulation Dispo: [med/surg] Admission and Anticipated Discharge Date Admission Date: August 16, 2024 Supervising Physician Co-Signing Physician Notes Attending Physician Supervision Note: I interviewed and examined the patient with Chaitanya Michaels and verified the alonso history and physical, reviewed labs and image studies and agree with findings and care plan noted above. Not much improvement in breathing since admission. cough Had 2 loose stool today. Slight rise in temp this am. Conversational dyspnea +, decreased BS right mid-lower lung field. RRR. Multifocal pneumonia with sepsis - sputum cx pending. blood cx aerobic - negative. -continue rocephin/azithromycin. To add steroids pending response of abx. Diarrhea- stool pcr and c diff negative. BRIE - Resolved with IVF hydration for 24 hours. continue oral fluid intake HypoNa and HypoK - replace orally. Anemia - likely reactive. Follow. Ambulation as tolerated. Subjective This morning Yanet was seen at bedside. She states that she no longer feels short of breath on 4 liters of oxygen. Yanet notes that she is still coughing with some production and was given a sputum collection tube if she brings anything up. She has been able to get the bathroom, but has increased work of breathing during this. She states that she has rib pain mainly in the back due to coughing episodes. Additionally, when supine, she feels as if she cannot breath which may be accompanied by coughing episodes. So she has remained reclined about 70 degrees. She has no headaches, chest pain, or abdominal pain. Review of Systems Review of Systems: Per HPI Physical Exam Constitutional: Seen inclined at 70 degrees with a nasal canula on 4 L. In no acute distress. Respiratory: Lung sounds are diminished bilaterally Possible rhonchi present Non-labored breathing on oxygen Normal respiratory rate Cardiovascular: Regular rate and rhythm No rubs murmurs or gallops S1 and S2 appreciated Results & Data Results & Data Vital Signs (Past 12 Hours) Vital Signs Temp Pulse Pulse Resp BP Pulse Ox Pulse Ox 08/17/24 03:39 37.8 C H 101 H 18 97/63 L 96 08/16/24 23:10 37.0 C 98 H 18 91/66 L 98 08/16/24 22:27 08/16/24 22:27 37.2 C 107 H 24 98/62 L 94 08/16/24 21:13 108 H 08/16/24 20:42 95 08/16/24 20:40 36.9 C 106 H 28 H 105/65 95 08/16/24 19:00 118 H 18 110/71 98 O2 Del Method O2 Del Method O2 Flow Rate O2 Flow Rate 08/17/24 03:39 Nasal Cannula 2 08/16/24 23:10 Nasal Cannula 2 08/16/24 22:27 Nasal Cannula 3 08/16/24 22:27 Nasal Cannula 3 08/16/24 21:13 08/16/24 20:42 Nasal Cannula 2 08/16/24 20:40 Nasal Cannula 2 08/16/24 19:00 Nasal Cannula 3
--- NOTE | 2024-08-17 07:50 | Pulmonary Consultation ---
Date of Consultation August 17, 2024 Assessment & Plan (1) Multifocal pneumonia: (2) BRIE (acute kidney injury): (3) Hypoxemia: Plan Impression: 39-year-old female with severe community-acquired pneumonia and hypoxemic respiratory failure with mild renal insufficiency. Recommendations: 1. Severe community-acquired pneumonia: Patient was initially treated with linezolid, Zosyn, and azithromycin. Given risk of serotonin syndrome with linezolid and bupropion, this will be discontinued. In addition the patient has no risk factors for resistant organisms. Zosyn will be stopped. Will place her on appropriately dosed azithromycin and Rocephin and see how she responds. Given the severity of her pneumonia, we did discuss adjuvant steroids which have been shown to potentially decrease risk of clinical worsening and ICU admission. She wants to see how she does with antibiotics for now given side effects of steroids. Check urinary Legionella antigen and follow-up on cultures. Will trend procalcitonin. Check MRSA swab 2. Hypoxemia: Continue supplemental oxygen titrated to keep saturations at or above 88%. Start incentive spirometry. 3. If the patient's clinical condition should worsen, consideration for bronchoscopy with BAL at that point time might be appropriate. Will see how she responds currently. Will continue to follow closely with you. Thanks for the consult. Care of this patient. Feel free to contact us with questions or concerns History of Present Illness Attending Physician: Shiloh Diaz MD History of Present Illness Asked by hospitalist to assist in evaluation management this patient with multifocal community-acquired pneumonia and hypoxemic respiratory failure. History is obtained from discussion with the patient as well as review of the electronic medical record. 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 She is a lifelong non-smoker. She started feeling poorly about 8 days ago with fevers. Her 6-year-old at home had recently been diagnosed with coxsackievirus. She presented to her primary care provider about 5 days ago and was swabbed for influenza and COVID both of which were negative. Supportive care was recommended. She developed shortness of breath about 4 days ago which progressed until yesterday when she was too weak to get up and move around. She saw her primary care provider who noted that she was hypoxemic and recommended evaluation in the emergency room. CT angiogram was performed which showed no evidence of PE but did show dense consolidation within the right upper lobe as well as some patchy consolidation throughout the other lung bender. She was admitted and placed on broad-spectrum antibiotics. She states she feels better today. The patient has no significant occupational or environmental exposures. No history of e-cigarette use or vaping. No other ill contacts. No pertinent travel. Her cough has not been productive. She has not had any hemoptysis. She does have some pain associated with deep breathing and coughing throughout her chest. She did have some arthralgias when she was febrile but these have resolved. No skin rashes or lesions. Allergies Allergy/AdvReac Type Severity Reaction Status Date / Time No Known Allergies Allergy Verified 06/21/24 05:26 Home Medications Medication Instructions Recorded Confirmed Type levonorgestrel 21 mcg/24 hr (up to 1 device intrauterine UD 08/26/19 08/16/24 History 8 years) 52 mg intrauterine device (Mirena) bupropion HCl 150 mg 24 hr tablet, 150 mg PO QAM 06/17/24 08/16/24 History extended release bupropion HCl 300 mg 24 hr tablet, 300 mg PO QAM 06/17/24 08/16/24 History extended release Patient History Medical History Anemia hx Anxiety and depression Heart murmur No longer detectable History of COVID-19 summer 2021>no residual symptoms Migraines hx Surgical History History of colposcopy Previous section x 2 [place] teeth extracted Family History Grandmother (Maternal) Breast cancer Denies family history of Ovarian cancer Colorectal cancer Social History Smoking Status: Never smoker Second Hand Exposure: No; Do You Dip or Chew Tobacco: No; Hx Alcohol Use: No Hx Substance Use: No Preferred Language: Thai Communication Ability: Effective Afternoon Nanny Required: No Beliefs That Will Affect Care: None Current Living Situation: Family Feels Safe at Home: Yes Assistive Devices: Oxygen - Continuous and Special Shoe Review of Systems Review of Systems: Please refer to admission H&P. No additions or deletions Physical Exam Constitutional: WD/WN, vitals as above Neck: trachea midline, no thyromegaly Respiratory: + labored breathing and + tachypneic; no respiratory distress Auscultation: + diminished lung sounds and + rhonchi Cardiovascular: RRR, no murmur, no edema Gastrointestinal (Abdomen): normal bowel sounds, soft, nontender, no hepatosplenomegaly Musculoskeletal: Extremities: extremities normal to inspection Skin: no rashes, warm and dry Neurologic: Nonfocal exam Lymphatic: no cervical lymphadenopathy Results & Data Results & Data Vital Signs (Past 12 Hours) Vital Signs Temp Pulse Pulse Resp BP Pulse Ox Pulse Ox 08/17/24 07:30 88 08/17/24 07:08 36.7 C 95 H 17 100/65 93 08/17/24 03:39 37.8 C H 101 H 18 97/63 L 96 08/16/24 23:10 37.0 C 98 H 18 91/66 L 98 08/16/24 22:27 08/16/24 22:27 37.2 C 107 H 24 98/62 L 94 08/16/24 21:13 108 H 08/16/24 20:42 95 08/16/24 20:40 36.9 C 106 H 28 H 105/65 95 O2 Del Method O2 Del Method O2 Flow Rate O2 Flow Rate 08/17/24 07:30 08/17/24 07:08 Nasal Cannula 4 08/17/24 03:39 Nasal Cannula 2 08/16/24 23:10 Nasal Cannula 2 08/16/24 22:27 Nasal Cannula 3 08/16/24 22:27 Nasal Cannula 3 08/16/24 21:13 08/16/24 20:42 Nasal Cannula 2 08/16/24 20:40 Nasal Cannula 2 Laboratory Results Procalcitonin elevated at 15 Cultures no growth to date Critical Care Results & Data Vital Signs (Past 12 Hours) Vital Signs Temp Pulse Pulse Resp BP Pulse Ox Pulse Ox 08/17/24 07:30 88 08/17/24 07:08 36.7 C 95 H 17 100/65 93 08/17/24 03:39 37.8 C H 101 H 18 97/63 L 96 08/16/24 23:10 37.0 C 98 H 18 91/66 L 98 08/16/24 22:27 08/16/24 22:27 37.2 C 107 H 24 98/62 L 94 08/16/24 21:13 108 H 08/16/24 20:42 95 08/16/24 20:40 36.9 C 106 H 28 H 105/65 95 O2 Del Method O2 Del Method O2 Flow Rate O2 Flow Rate 08/17/24 07:30 08/17/24 07:08 Nasal Cannula 4 08/17/24 03:39 Nasal Cannula 2 08/16/24 23:10 Nasal Cannula 2 08/16/24 22:27 Nasal Cannula 3 08/16/24 22:27 Nasal Cannula 3 08/16/24 21:13 08/16/24 20:42 Nasal Cannula 2 08/16/24 20:40 Nasal Cannula 2 Lab & Micro Results (Past 24 Hours) RBC 3.72 M/uL (4.20-5.40) L 08/16/24 WBC 11.71 K/ul (4.8-10.8) H 08/16/24 Hgb 11.0 g/dl (12.0-16.0) L 08/16/24 Hct 31.6 % (37.0-47.0) L 08/16/24 MCV 84.9 fL (80.0-100.0) 08/16/24 MCH 29.6 pg (25.0-34.0) 08/16/24 MCHC 34.8 g/dL (32.0-36.0) 08/16/24 RDW Standard Deviation 40.9 fL (36.4-46.3) 08/16/24 RDW Coefficient of Variation 13.2 % (11.5-14.5) 08/16/24 Plt Count 168 K/uL (130-400) 08/16/24 MPV 10.5 fL (9.4-12.4) 08/16/24 Neutrophils (%) (Auto) 93.3 % 08/16/24 Lymphocytes (%) (Auto) 2.0 % 08/16/24 Monocytes # (Auto) 0.35 K/uL (0.11-0.59) 08/16/24 Eosinophils # (Auto) 0.00 K/uL (0.00-0.50) 08/16/24 Immature Granulocyte % (Auto) 1.1 % 08/16/24 Neutrophils # (Auto) 10.93 K/uL (1.40-6.50) H 08/16/24 Lymphocytes # (Auto) 0.23 K/uL (1.20-3.40) L 08/16/24 Monocytes # (Auto) 0.35 K/uL (0.11-0.59) 08/16/24 Eosinophils # (Auto) 0.00 K/uL (0.00-0.50) 08/16/24 Basophils # (Auto) 0.07 K/uL (0.00-0.20) 08/16/24 Immature Granulocyte # (Auto) 0.13 K/uL (0.01-0.20) 5 Polychromasia 1+ 08/16/24 Toxic Granulation 1+ 08/16/24 Acanthocytes 1+ 08/16/24 Na 126 mmol/L (136-145) L 08/16/24 K 3.3 mmol/L (3.5-5.1) L 08/16/24 Cl 91 mmol/L (98-107) L 08/16/24 CO2 22 mmol/L (21-32) 08/16/24 Anion Gap 13 (3-11) H 08/16/24 BUN 28 mg/dl (6-23) H 08/16/24 Creatinine 1.64 mg/dl (0.6-1.2) H 08/16/24 BUN/Creatinine Ratio 17.1 (10-20) 08/16/24 Glu 95 mg/dl (70-99(Fasting)) 08/16/24 Ca 8.4 mg/dl (8.6-10.3) L 08/16/24 Total Bilirubin 1.4 mg/dl (0.2-1.0) H 08/16/24 AST 33 U/L (13-39) 08/16/24 ALT 24 U/L (7-52) 08/16/24 Alkaline Phosphatase 107 U/L (34-104) H 08/16/24 TP 6.9 gm/dl (6.0-8.3) 08/16/24 Albumin 3.5 gm/dl (3.4-5.0) 08/16/24 Globulin 3.4 gm/dl (2.5-4.0) 08/16/24 Albumin/Globulin Ratio 1.0 (0.9-2) 08/16/24 Mg 1.8 mg/dl (1.7-2.4) 08/16/24 12:22 Calcium Level 8.4 mg/dl (8.6-10.3) L 08/16/24 12:22 Prothromb Time International Ratio 1.3 (0.9-1.1) H 08/16/24 12 :22 Diagnostic Findings (Past 24 Hours) Chest CTA 08/16/24 12:08 CT angio chest PE protocol CLINICAL HISTORY: Dyspnea, tachycardia, recent surgery TECHNIQUE: Multidetector row helical CT of the chest was performed with angiographic protocol. Coronal and sagittal reformations were obtained. Coronal and sagittal MIPS were obtained from the axial data set and were submitted for review. Automated dose lowering techniques and/or adjustment according to patient size were utilized for this exam. CT DOSE: 630.05 mGy.cm Comparison: None available at the time of this dictation. FINDINGS: Lungs and pleura: Multifocal airspace opacities are seen most prominently in the right lung and lingula. Trace right pleural effusion. Heart and pericardium: Heart size is normal. No pericardial effusion. Vessels: No evidence of pulmonary embolism. Mediastinum and yesenia: Subcentimeter lymph nodes are seen. Chest wall and lower neck: Small thyroid nodules are noted which do not require follow-up by ACR criteria. Subcentimeter subcentimeter cervical nodes are seen. Abdomen: Unremarkable. Bones: Minimal degenerative changes are seen. IMPRESSION: 1. Multifocal airspace opacities are seen compatible with multifocal pneumonia. Follow-up to resolution is recommended. 2. No evidence of pulmonary bolus. 3. Trace right pleural effusion. ACT 112: Negative or not required by law. Electronically signed by: Prince Kumar M.D. 08/16/2024 12:59 PM I & O Totals 24 Hours 08/16/24 08/17/24 08/18/24 06:59 06:59 06:59 Intake Total 4034.667 / 4034.667 Balance 4034.667 / 4034.667 Cumulative 08/16/24 11:59 thru 08/17/24 06:00 Intake Total 4034.667 Balance 4034.667 RT Ventilator Mngmt (Last Documented) Ventilator Ordered Settings Respiratory Rate 17 08/17/24 07:08 Ventilator - PT Measurements Respiratory Rate 17 PG Care Time/CCT Total # of Minutes Spent Total Time Spent with Patient: Total time spent is greater than 50% in coordination of care (as documented) at patient's floor/unit and/or counseling patient: Coding Level of Care Code 42078 IN/OBS CONSULT LVL 4,60M Diagnoses Multifocal pneumonia J18.9 BRIE (acute kidney injury) N17.9 Hypoxemia R09.02
[2024-08-17 07:52] LABS: Hematocrit (blood only) 28.6 % (37.0-47.0); Mean Corpuscular Hemoglobin 29.7 pg (25.0-34.0); Mean Corpuscular Volume 84.9 fL (80.0-100.0); Mean Platelet Volume 10.4 fL (9.4-12.4); Platelet Count 185 K/uL (130-400); RDW Coefficient of Variation 13.4 % (11.5-14.5); RDW Standard Deviation 42.1 fL (36.4-46.3); Red Blood Count 3.37 M/uL (4.20-5.40); White Blood Count 11.91 K/ul (4.8-10.8)
[2024-08-17] MEDS: buPROPion XL 150 MG TABCR PO SCH (08:07)
[2024-08-17] MEDS: buPROPion XL 300 MG TABCR PO SCH (08:07)
[2024-08-17] MEDS: AZITHROMYCIN 250 MG TAB PO SCH (08:07)
[2024-08-17] MEDS: cefTRIAXone SODIUM 2,000 MG/50 ML BAG IV SCH (08:14)
[2024-08-17 08:26] LABS: BUN Creatinine Ratio 21.3 (10-20); Bilirubin,Total 1.5 mg/dl (0.2-1.0); Calcium 7.6 mg/dl (8.6-10.3); Creatinine Clr Calc Pharmacy 91.6 ml/min; Globulin 3.1 gm/dl (2.5-4.0); Potassium 3.1 mmol/L (3.5-5.1); Total Protein 6.1 gm/dl (6.0-8.3)
[2024-08-17 08:32] LABS: Basophils # (auto) 0.04 K/uL (0.00-0.20); Basophils % (auto) 0.3 %; Dohle Bodies 1+; Eosinophils # (auto) 0.01 K/uL (0.00-0.50); Eosinophils % (auto) 0.1 %; Immature Granulocytes # (auto) 0.27 K/uL (0.01-0.20); Immature Granulocytes % (auto) 2.3 %; Lymphocytes # (auto) 0.38 K/uL (1.20-3.40); Lymphocytes % (auto) 3.2 %; Monocytes # (auto) 0.37 K/uL (0.11-0.59); Monocytes % (auto) 3.1 %; Neutrophils # (auto) 10.84 K/uL (1.40-6.50); Toxic Granulation 1+
[2024-08-17] MEDS ORDERED: AZITHROMYCIN 250 MG TAB PO SCH (09:00)
[2024-08-17] MEDS: POTASSIUM CHLORIDE CRTAB 20 MEQ TABCR PO ONE (09:37)
[2024-08-17 10:38] LABS: Creatinine Urine Random 46.6 mg/dl; Sodium Random Urine < 10 mmol/L
[2024-08-17 13:51] LABS: Adenovirus F 40/41 PCR Not Detected (NotDetected); Astrovirus PCR Not Detected (NotDetected); Campylobacter PCR Not Detected (NotDetected); Cryptosporidium PCR Not Detected (NotDetected); Cyclospora cayetanensis PCR Not Detected (NotDetected); Entamoeba histolytica PCR Not Detected (NotDetected); Enteroaggregative E.coli(EAEC) Not Detected (NotDetected); Enteropathogenic E.coli (EPEC) Not Detected (NotDetected); Enterotoxigenic E.coli (ETEC) Not Detected (NotDetected); Giardia lamblia PCR Not Detected (NotDetected); Norovirus GI/GII PCR Not Detected (NotDetected); Plesiomonas shigelloides PCR Not Detected (NotDetected); Rotavirus A PCR Not Detected (NotDetected); Salmonella PCR Not Detected (NotDetected); Sapovirus PCR Not Detected (NotDetected); Shiga-like Toxin E.coli (STEC) Not Detected (NotDetected); Shigella/Enteroinvasive E.coli Not Detected (NotDetected); Vibrio cholerae PCR Not Detected (NotDetected); Vibrio species PCR Not Detected (NotDetected); Yersinia enterocolitica PCR Not Detected (NotDetected)
--- NOTE | 2024-08-18 08:15 | Pulmonology Progress Note ---
Date of Service August 18, 2024 Assessment & Plan (1) Multifocal pneumonia: (2) BRIE (acute kidney injury): (3) Hypoxemia: Plan Impression: 39-year-old female with severe community-acquired pneumonia and hypoxemic respiratory failure with mild renal insufficiency. Recommendations: 1. Severe community-acquired pneumonia: Currently on parenteral Rocephin and azithromycin. Continue for now. If cultures remain negative in the next 24 hours, can likely transition to oral antibiotics at that point in time with plans to complete 7-day course. We jointly discussed steroids yesterday however given her significant clinical improvement over 24 hours, I do not think steroids are warranted currently. She will need a follow-up chest x-ray in 2 to 4 weeks to document resolution/improvement 2. Hypoxemia: Continue supplemental oxygen titrated to keep saturations at or above 88%. Continue incentive spirometry. Continue out of bed and ambulatory 3. If the patient's clinical condition should worsen, consideration for bronchoscopy with BAL at that point time might be appropriate. Will see how she responds currently. Will continue to follow closely with you. Feel free to contact us with questions or concerns Admission and Anticipated Discharge Date Admission Date: August 16, 2024 Subjective Patient seen and examined. EMR reviewed. Patient states that she is feeling better. Her oxygen requirement has reduced. She is not having any chest pain. She is not coughing up any phlegm. She is less short of breath with ambulation than previously. She is tolerating a diet. She has no new concerns this morning Review of Systems 2 Review of Systems: All systems reviewed & are unremarkable except as noted in Subjective Physical Exam 2 Constitutional: WD/WN, vitals as above Neck: trachea midline, no thyromegaly Respiratory: + labored breathing and + tachypneic; no respiratory distress Auscultation: + diminished lung sounds and + rhonchi Cardiovascular: RRR, no murmur, no edema Gastrointestinal (Abdomen): normal bowel sounds, soft, nontender, no hepatosplenomegaly Musculoskeletal: Extremities: extremities normal to inspection Skin: no rashes, warm and dry Lymphatic: no cervical lymphadenopathy Results & Data Results & Data Vital Signs (Past 12 Hours) Vital Signs Temp Pulse Pulse Resp BP Pulse Ox O2 Del Method 08/18/24 07:43 36.8 C 96 H 20 114/72 95 Nasal Cannula 08/18/24 07:07 85 08/18/24 06:59 87 22 96 Nasal Cannula 08/18/24 02:55 36.9 C 90 18 108/69 93 Nasal Cannula 08/17/24 22:45 36.7 C 102 H 18 113/72 92 Nasal Cannula 08/17/24 21:50 101 H 08/17/24 21:00 Nasal Cannula O2 Flow Rate 08/18/24 07:43 2 08/18/24 07:07 08/18/24 06:59 2 08/18/24 02:55 2 08/17/24 22:45 2 08/17/24 21:50 08/17/24 21:00 2 Laboratory Results 08/17/24 07:08 08/17/24 07:08 Microbiology 08/16/24 14:22 Blood Aerobic Blood Culture - Preliminary No growth in Aerobic bottle after 24 hours. 08/16/24 14:22 Blood Anaerobic Blood Culture - Final 08/16/24 13:25 Blood Aerobic Blood Culture - Preliminary No growth in Aerobic bottle after 24 hours. 08/16/24 13:25 Blood Anaerobic Blood Culture - Preliminary No growth in Anaerobic bottle after 24 hours. PG Care Time/CCT Total # of Minutes Spent Total Time Spent with Patient: Total time spent is greater than 50% in coordination of care (as documented) at patient's floor/unit and/or counseling patient: Coding Level of Care Code 98059 SUB INP/OBS CARE MIN Diagnoses Multifocal pneumonia J18.9 BRIE (acute kidney injury) N17.9 Hypoxemia R09.02
[2024-08-18 08:23] LABS: Basophils # (auto) 0.01 K/uL (0.00-0.20); Basophils % (auto) 0.1 %; Eosinophils # (auto) 0.05 K/uL (0.00-0.50); Eosinophils % (auto) 0.6 %; Hematocrit (blood only) 26.1 % (37.0-47.0); Hemoglobin 9.1 g/dl (12.0-16.0); Immature Granulocytes # (auto) 0.25 K/uL (0.01-0.20); Immature Granulocytes % (auto) 3.1 %; Lymphocytes # (auto) 0.84 K/uL (1.20-3.40); Lymphocytes % (auto) 10.4 %; Mean Corpuscular Hemoglobin 29.7 pg (25.0-34.0); Mean Corpuscular Hgb Conc 34.9 g/dL (32.0-36.0); Mean Corpuscular Volume 85.3 fL (80.0-100.0); Mean Platelet Volume 9.7 fL (9.4-12.4); Monocytes # (auto) 0.61 K/uL (0.11-0.59); Monocytes % (auto) 7.5 %; Neutrophils # (auto) 6.34 K/uL (1.40-6.50); Neutrophils % (auto) 78.3 %; Platelet Count 206 K/uL (130-400); RDW Standard Deviation 43.8 fL (36.4-46.3); Red Blood Count 3.06 M/uL (4.20-5.40)
[2024-08-18 08:56] LABS: Calcium 7.7 mg/dl (8.6-10.3); Creatinine Clr Calc Pharmacy 145.5 ml/min; Potassium 2.9 mmol/L (3.5-5.1)
[2024-08-18] MEDS: POTASSIUM CHLORIDE / WTR 10 MEQ/100 ML PLCT IV SCH (09:31)
[2024-08-18] MEDS: POTASSIUM CHLORIDE CRTAB 20 MEQ TABCR PO STA (09:31)
--- NOTE | 2024-08-18 10:03 | Hospitalist Progress Note ---
Date of Service August 18, 2024 Assessment & Plan (1) Multifocal pneumonia: (2) BRIE (acute kidney injury): (3) Hypoxemia: Plan The patient is a 39-year-old female with a past medical history including depression. The patient presents to the emergency department with 3 to 4 days of progressively worsening shortness of breath, dyspnea on exertion. Patient was seen at her PCPs the day of admission, due to concerns regarding possible yohq-qvar-ynq-mouth disease. She was found of sores in her throat. She has had progressively worsening shortness of breath over the past 4 days. Due to concerns regarding worsening shortness of breath and cough productive of white sputum over the past 3 days, and a temperature of 102 F she presented to the ED for assessment on 08/16/2024. In ED, patient had a CTA PE protocol that was negative for PE but was notable for an extensive right-sided pneumonia. She was then admitted. #Multifocal pneumonia #Sepsis #Diarrhea - SIRS Criteria: Tachycardia + Fever + Hypotension - CTA of the chest negative for PE + notable for right lung pneumonia -- Cannot rule out obstructive component - Linezolid 600 mg IV every 12 hours D/Raghu after 24 hours - Pip-Tazo 4.5 mg IV suraj 8 hours D/Raghu 24 hours - Azithromycin 500 mg PO (08/17) -- Azithromycin 250 mg PO QD (08/17-08/22) - Ceftriaxone 2000 mg QD (08/17 - 08/22) - DuoNebs PRN - Sputum gram stain and culture: needs collected - Blood cultures negative - C. dif negative - MRSA Nares negative - Respiratory Biofire negative - Legionella panel pending - Stool Biofire negative - Pulmonology following - Leukocytosis (11.71 - 11.91) -- Resolved 8.10 on 08/18 - Procalcitonin (15.20 - 9.93) #Renal insufficiency #Hyponatremia/Hypokalemia/Hypocalcemia - Creatinine 1.64 on admission: given 1.5 L of NS in ED -- 08/17 0.94 -- 08/18 0.59 - Placed on NSS at 80 mL/h x 1 additional liter -- Hold as long as PO intake is sufficient (e.g., Powerade) -- Na (126 - 131 - 133) -- K (3.3 - 3.1 - 2.9) -- Ca (8.4 - 7.6 - 77) - Follow serially #Anemia - RBC: (3.72 on admission) 3.37 M/uL (08/17) - 3.06 (08/18) - HCT: (31.6% on admission) 28.6% (08/17) - 26.1% (08/18) #Hypomagnesemia - Magnesium 1.8 on admission give 1 g mag sulfate IV FEN: Regular Code status: full code DVT ppx: ambulation Dispo: [med/surg] Admission and Anticipated Discharge Date Admission Date: August 16, 2024 Supervising Physician Co-Signing Physician Notes Attending Physician Supervision Note: I interviewed and examined the patient with Chaitanya Michaels and verified the alonso history and physical, reviewed labs and image studies and agree with findings and care plan noted above. Breathing better. No fever. another loose stool this am. Sitting in chair. decreased BS right mid-lower lung field. RRR. Multifocal pneumonia with sepsis - blood cx aerobic - negative. -continue rocephin/azithromycin. Diarrhea- stool pcr and c diff negative. Likely abx side effect. BRIE - Resolved with IVF hydration for 24 hours. continue oral fluid intake HypoNa and HypoK - replace. Anemia - likely reactive. Ambulation as tolerated. Subjective Yanet was seen seated in her chair with her at bedside. Today she says that she is able to breathe easier, was able to recline without shortness of breath, and was able to ambulate slowly to the bathroom with 2L of oxygen without shortness of breath. Per the Yanet and her , she is doing much better than Thursday in terms of breathing, color, conversational abilities, and looking more like herself. She mentions that she is still having diarrhea with food intake, so she has tried to stay hydrated. She had yogurt, Powerade, and pretzels at bedside. We discussed her low electrolytes and encouraged trying to drink the Powerade and trying to eat as tolerated. She and her are following her labs, and would like to stay posted on updates, but are happy with the progressive decline of her WBC (now within normal limits). At this time, we discussed her negative C. dif and pending Legionella. Otherwise, she and her had no further updates, questions, or concerns. Met Yanet again this afternoon sitting at bedside. She was without oxygen supplementation stating that, at rest, she feels fine. She wants to attempt eating after finishing a potassium supplement drip just in case food intake triggers diarrhea again. We want to be posted on the need for oxygen (e.g., going to the bathroom), and encouraged her to use the oxygen if needed. We still are waiting for the Legionella results, and updated Yanet on this. Otherwise, she had no further questions or updates. Review of Systems Review of Systems: Per HPI Physical Exam Constitutional: Sitting comfortably in a chair at bedside with nasal cannula in place on 2 L of oxygen In no apparent distress Respiratory: Lungs have airflow bilaterally Possible diminished R lung sounds No crackles, rhonchi, or wheeze appreciated Cardiovascular: Regular rate and rhythm S1 and S2 appreciated No rubs, murmurs, or gallops Results & Data Results & Data Vital Signs (Past 12 Hours) Vital Signs Temp Pulse Pulse Resp BP Pulse Ox O2 Del Method 08/18/24 08:41 Nasal Cannula 08/18/24 07:43 36.8 C 96 H 20 114/72 95 Nasal Cannula 08/18/24 07:07 85 08/18/24 06:59 87 22 96 Nasal Cannula 08/18/24 02:55 36.9 C 90 18 108/69 93 Nasal Cannula 08/17/24 22:45 36.7 C 102 H 18 113/72 92 Nasal Cannula 08/17/24 21:50 101 H O2 Flow Rate 08/18/24 08:41 2 08/18/24 07:43 2 08/18/24 07:07 08/18/24 06:59 2 08/18/24 02:55 2 08/17/24 22:45 2 08/17/24 21:50
[2024-08-18] MEDS ORDERED: LOPERAMIDE HCL 2 MG CAP PO PRN (16:34)
[2024-08-18] MEDS ORDERED: SODIUM CHLORIDE 0.9% 1,000 ML IV SCH (16:45)
[2024-08-18] MEDS: ADVANCED PROBIOTIC 625 MG CAPSULE PO SCH (17:31)
[2024-08-19 07:17] LABS: Hematocrit (blood only) 27.9 % (37.0-47.0); Hemoglobin 9.3 g/dl (12.0-16.0); Mean Corpuscular Hemoglobin 28.9 pg (25.0-34.0); Mean Corpuscular Hgb Conc 33.3 g/dL (32.0-36.0); Mean Corpuscular Volume 86.6 fL (80.0-100.0); Mean Platelet Volume 9.6 fL (9.4-12.4); Platelet Count 227 K/uL (130-400); RDW Coefficient of Variation 13.9 % (11.5-14.5); RDW Standard Deviation 44.9 fL (36.4-46.3); Red Blood Count 3.22 M/uL (4.20-5.40); White Blood Count 6.38 K/ul (4.8-10.8)
[2024-08-19 07:39] LABS: Calcium 7.5 mg/dl (8.6-10.3); Creatinine Clr Calc Pharmacy 171.8 ml/min; Potassium 3.7 mmol/L (3.5-5.1)
[2024-08-19 08:18] LABS: Vitamin B12 > 1500 pg/ml (180-914)
[2024-08-19 08:20] LABS: Basophils # (auto) 0.02 K/uL (0.00-0.20); Basophils % (auto) 0.3 %; Eosinophils # (auto) 0.09 K/uL (0.00-0.50); Eosinophils % (auto) 1.4 %; Immature Granulocytes # (auto) 0.46 K/uL (0.01-0.20); Immature Granulocytes % (auto) 7.2 %; Lymphocytes # (auto) 1.14 K/uL (1.20-3.40); Lymphocytes % (auto) 17.9 %; Monocytes # (auto) 0.64 K/uL (0.11-0.59); Neutrophils # (auto) 4.03 K/uL (1.40-6.50); Neutrophils % (auto) 63.2 %
--- NOTE | 2024-08-19 09:14 | Pulmonology Progress Note ---
Date of Service August 19, 2024 Assessment & Plan (1) Multifocal pneumonia: (2) BRIE (acute kidney injury): (3) Hypoxemia: Plan Impression: 39-year-old female with severe community-acquired pneumonia and hypoxemic respiratory failure with mild renal insufficiency. Her hypoxemia is resolved and she is feeling better currently. Recommendations: 1. Severe community-acquired pneumonia: Clinically improved. Transition to oral azithromycin and complete 5 days. Transition to oral Ceftin and completed total of 7 days of antimicrobial therapy of beta-lactam. Recommend follow-up chest x-ray in 2 to 4 weeks 2. Hypoxemia: Resolved 3. Melena/hematochezia: Management per primary service Pulmonary will sign off. Feel free to contact us with questions or concerns Admission and Anticipated Discharge Date Admission Date: August 16, 2024 Subjective Patient seen and examined. EMR reviewed. Patient reports that she is feeling better. She is now off oxygen. She is able to ambulate to the restroom without becoming significantly winded. She has noted some blood in her bowel movements and is following up with her primary admitting service. She denies abdominal pain. No fevers chills or night sweats. Review of Systems 2 Review of Systems: All systems reviewed & are unremarkable except as noted in Subjective Physical Exam 2 Constitutional: WD/WN, vitals as above Neck: trachea midline, no thyromegaly Respiratory: no respiratory distress, no labored breathing and not tachypneic Auscultation: no crackles, no rhonchi and no wheezes Cardiovascular: RRR, no murmur, no edema Gastrointestinal (Abdomen): normal bowel sounds, soft, nontender, no hepatosplenomegaly Musculoskeletal: Extremities: extremities normal to inspection Skin: no rashes, warm and dry Lymphatic: no cervical lymphadenopathy Results & Data Results & Data Vital Signs (Past 12 Hours) Vital Signs Temp Pulse Pulse Resp BP Pulse Ox O2 Del Method 08/19/24 07:22 36.6 C 71 17 120/81 93 Room Air 08/19/24 06:51 37.2 C 08/19/24 02:15 37.7 C H 96 H 18 128/86 93 Room Air 08/18/24 22:44 36.6 C 90 18 119/76 96 Room Air 08/18/24 22:03 94 H Laboratory Results 08/19/24 06:38 08/19/24 06:38 Cultures no growth to date Diagnostic Findings No new imaging PG Care Time/CCT Total # of Minutes Spent Total Time Spent with Patient: Total time spent is greater than 50% in coordination of care (as documented) at patient's floor/unit and/or counseling patient: Coding Level of Care Code 17424 SUB INP/OBS CARE 2/35MIN Diagnoses Multifocal pneumonia J18.9 BRIE (acute kidney injury) N17.9 Hypoxemia R09.02
[2024-08-19] MEDS: cefUROXime axetil 500 MG TAB PO SCH (09:52)
[2024-08-19] MEDS: PANTOprazole 40 MG TAB PO SCH (09:52)
--- NOTE | 2024-08-19 10:05 | Hospitalist Progress Note ---
Date of Service August 19, 2024 Assessment & Plan (1) Multifocal pneumonia: (2) BRIE (acute kidney injury): (3) Hypoxemia: Plan The patient is a 39-year-old female with a past medical history including depression. The patient presents to the emergency department with 3 to 4 days of progressively worsening shortness of breath, dyspnea on exertion. Patient was seen at her PCPs the day of admission, due to concerns regarding possible zwdr-espk-qmm-mouth disease. She was found of sores in her throat. She has had progressively worsening shortness of breath over the past 4 days. Due to concerns regarding worsening shortness of breath and cough productive of white sputum over the past 3 days, and a temperature of 102 F she presented to the ED for assessment on 08/16/2024. In ED, patient had a CTA PE protocol that was negative for PE but was notable for an extensive right-sided pneumonia. She was then admitted. #Multifocal pneumonia #Sepsis (Resolved) #Diarrhea - SIRS Criteria: Tachycardia + Fever + Hypotension - CTA of the chest negative for PE + notable for right lung pneumonia -- Cannot rule out obstructive component - Linezolid 600 mg IV every 12 hours D/Raghu after 24 hours - Pip-Tazo 4.5 mg IV suraj 8 hours D/Raghu 24 hours - Azithromycin 500 mg PO (08/17) -- Azithromycin 250 mg PO QD (08/17-08/22) - Ceftriaxone 2000 mg QD (08/17-) -- Swapped to cefuroxime 500 mg PO BID (08/19) - DuoNebs PRN - Sputum gram stain and culture: needs collected - Blood cultures negative - C. dif negative - MRSA Nares negative - Respiratory Biofire negative - Legionella panel pending - Stool Biofire negative - Pulmonology following - Leukocytosis (11.71 - 11.91) -- Resolved 8.10 on 08/18 - Procalcitonin (15.20 - 9.93) #Acute Hematochezia/Potential Stress Gastric Ulcers - New onset bloody diarrhea as of 08/18 -- Fecal occult: positive -- C. dif testing ordered -- H/H: trending towards normal -- PT/INR ordered (elevated at 1.3 on admission); 1.2 (08/19) -- Pantoprazole 40 mg IV BID -- Famotidine 20 mg PO QD -- GI consulted #Renal insufficiency (Resolved) #Hyponatremia/Hypokalemia/Hypocalcemia - Creatinine 1.64 on admission; 0.50 (08/19) - Given 1.5 L of NS in ED - Placed on NSS at 80 mL/h x 1 additional liter -- Hold as long as PO intake is sufficient (e.g., Powerade) -- Na 126 on admission; 137 (08/19) -- K 3.3 on admission; 3.7 (08/19) --- Multiple K drip supplements -- Ca 8.4 on admisssion; 7.5 (08/19) - Follow serially #Anemia - RBC: (3.72 on admission) 3.37 M/uL (08/17) - 3.06 (08/18) - 3.22 (08/19) - HCT: (31.6% on admission) 28.6% (08/17) - 26.1% (08/18) - 27.9% (08/19) #Hypomagnesemia (Resolved) - Magnesium 1.8 on admission give 1 g mag sulfate IV FEN: Regular Code status: full code DVT ppx: ambulation Dispo: [med/surg] Admission and Anticipated Discharge Date Admission Date: August 16, 2024 Supervising Physician Co-Signing Physician Notes I personally examined the patient and verified alonso points of history and exam, discussed case, and agree with decision making and plan documented by Chaitanya Christie [facility] [[email or web address]]. Patient is clinically improving from a pulmonary standpoint. Currently on Ceftin 500 mg twice daily to complete 7 days of treatment. Will recommend follow-up imaging to confirm resolution. Patient remains on azithromycin to complete 5 full days of treatment. Trial percussion therapy by respiratory to enhance sputum clearance in setting of guaifenesin. Patient repo rted dark bloody diarrhea, was evaluated by GI, recommend monitoring at this time. Will trend hemoglobin. PPI has been started. Probiotics daily. Will avoid NSAIDs if able. Advised patient to get fax number so we can send a work note to her employer. Alex Holt was seen at bedside this morning without oxygen. She states that she is breathing better and is not short of breath without the oxygen. She is able to slowly ambulate to the bathroom without breathing difficulties. We discussed her diarrhea and appetite. She mentioned that her diarrhea was frankly bloody yesterday with 4-5 bowel movements of bloody/black stools. She has no history of previous bloody/black bowel movements, family history of inflammatory bowel disease, no known gastroenteritis/colitis contacts, and no known family history of colorectal cancers. We briefly discussed potential management options and holding off on loperamide. Yanet was curious about how bacteriemia/bacterial load is measured. We discussed that we look for signs/symptoms of inflammation, namely fever, blood pressure, chills, WBCs, and others in an otherwise healthy young adult without immunodeficiency/immunosuppression. We discussed that while brushing our teeth we become transiently bacteremic, but are without inflammatory signs/symptoms as our bodies can clear the bacteria. She was also curious about her return to baseline. 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 If pulmonary issues remain, she should inform her PCP for further workup. Otherwise, she had no further questions, concerns, or updates. Review of Systems Review of Systems: Per HPI Physical Exam Constitutional: Sitting comfortably in bed In no apparent distress Respiratory: Right lung has diminished air entry comparative to the left Potential rhonchi in the right lung No rhonchi, wheeze, or crackles in the left lung Breathing without accessory muscle use Cardiovascular: Regular rate and rhythm S1 and S2 appreciated No rubs, murmurs, or gallops Gastrointestinal (Abdomen): Normoactive bowel sounds No tenderness to palpation No organomegaly appreciated Results & Data Results & Data Vital Signs (Past 12 Hours) Vital Signs Temp Pulse Pulse Resp BP Pulse Ox O2 Del Method 08/19/24 09:10 Room Air 08/19/24 07:22 36.6 C 71 17 120/81 93 Room Air 08/19/24 06:51 37.2 C 08/19/24 02:15 37.7 C H 96 H 18 128/86 93 Room Air 08/18/24 22:44 36.6 C 90 18 119/76 96 Room Air 08/18/24 22:03 94 H
[2024-08-19 12:41] LABS: Hematocrit (blood only) 28.8 % (37.0-47.0); Hemoglobin 9.8 g/dl (12.0-16.0)
[2024-08-19 13:00] LABS: INR 1.2 (0.9-1.1); Partial Thromboplastin Ratio 0.8; Partial Thromboplastin Time 22 Seconds (21-31); Prothrombin Time 13.2 Seconds (9.0-12.0)
--- NOTE | 2024-08-19 13:54 | Gastrointestinal Consultation ---
Date of Consultation August 19, 2024 Assessment & Plan (1) Bloody diarrhea: Patient with bloody diarrhea that started prior to admission, but worsened with antibiotics. hgb has been trending upwards. stool studies have been negative outside of being heme positive. - will discuss case further with Dr. Friedman, further recommendations to follow. Supervising Physician Co-Signing Physician Notes I saw and examined this patient with our nurse practitioner and agree with her assessment and plan. Suspect diarrhea is an extrapulmonary symptom from her pneumonia. Many pneumonia pathogens can also cause diarrhea. It is unlikely manan gudino has dysentery with the presence of blood. Bleeding could be due to anorectal irritation due to her frequent bowel movements or an internal hemorrhoid. Stool pathogens have been negative which is likely excludes a primary GI infection. As she is getting better clinically from her pneumonia would continue to monitor her stool output. If she continues to have rectal bleeding after resolution of her pneumonia then we could consider further intervention such as a colonoscopy. History of Present Illness Reason for Consultation: Melena Requesting Physician: Dr. Gomez Attending Physician: Anne-Marie Hardy, History of Present Illness Patient is a 39 year old female with a past medical history including depression who presented to the ED on 08/16 with 3 to 4 days of progressively worsening shortness of breath, dyspnea on exertion. Patient was seen at her PCPs the day of admission, due to concerns regarding possible zppn-boyo-qak-mouth disease. She was found of sores in her throat. She has had progressively worsening shortness of breath over the previous 4 days. In the ED, patient had a CTA PE protocol that was negative for PE but was notable for an extensive right-sided pneumonia which she was admitted. Patient had developed bloody diarrhea during her stay, but admits she had diarrhea even prior to admission. she feels it was worse when she started antibiotics. c diff negative x 2 with last check on 08/19. rest of stool panel was negative other than being heme positive. hgb 9.8. she questions if blood in stools was from how frequently she was moving her bowels. she has never had a colonoscopy or egd. Allergies Allergy/AdvReac Type Severity Reaction Status Date / Time No Known Allergies Allergy Verified 06/21/24 05:26 Home Medications Medication Instructions Recorded Confirmed Type levonorgestrel 21 mcg/24 hr (up to 1 device intrauterine UD 08/26/19 08/16/24 History 8 years) 52 mg intrauterine device (Mirena) bupropion HCl 150 mg 24 hr tablet, 150 mg PO QAM 06/17/24 08/16/24 History extended release bupropion HCl 300 mg 24 hr tablet, 300 mg PO QAM 06/17/24 08/16/24 History extended release Patient History Medical History Anemia hx Anxiety and depression Heart murmur No longer detectable History of COVID-19 summer 2021>no residual symptoms Migraines hx Surgical History History of colposcopy Previous section x 2 [place] teeth extracted Family History Grandmother (Maternal) Breast cancer Denies family history of Ovarian cancer Colorectal cancer Social History Smoking Status: Never smoker Second Hand Exposure: No; Do You Dip or Chew Tobacco: No; Hx Alcohol Use: No Hx Substance Use: No Preferred Language: Yi Communication Ability: Effective Striper Spray Gun Required: No Beliefs That Will Affect Care: None Current Living Situation: Family Feels Safe at Home: Yes Assistive Devices: None Review of Systems Review of Systems: All systems reviewed & are unremarkable except as noted in HPI & below Physical Exam Constitutional: WD/WN, vitals as above Respiratory: normal respiratory effort, lungs clear to auscultation Cardiovascular: Rate/Rhythm: regular rate and regular rhythm Gastrointestinal (Abdomen): normal bowel sounds, soft, nontender, no hepatosplenomegaly Psychiatric: Orientation: alert and oriented x 3 Affect: euthymic affect Results & Data Vital Signs (Past 12 Hours) Vital Signs Temp Pulse Pulse Resp BP Pulse Ox O2 Del Method 08/19/24 10:39 98.1 F 86 19 125/83 93 Room Air 08/19/24 09:10 Room Air 08/19/24 08:00 73 08/19/24 07:22 97.9 F 71 17 120/81 93 Room Air 08/19/24 06:51 99.0 F 08/19/24 02:15 99.9 F H 96 H 18 128/86 93 Room Air Laboratory Results Laboratory Results - last 48 hr 08/16/24 08/17/24 08/18/24 18:57 09:20 07:45 WBC 8.10 RBC 3.06 L Hgb 9.1 L Hct 26.1 L MCV 85.3 MCH 29.7 MCHC 34.9 RDW Std Deviation 43.8 RDW Coeff of Sammy 14.0 Plt Count 206 MPV 9.7 Immature Gran % (Auto) 3.1 Neut % (Auto) 78.3 Lymph % (Auto) 10.4 Vance % (Auto) 7.5 Eos % (Auto) 0.6 Baso % (Auto) 0.1 Neut # (Auto) 6.34 Lymph # (Auto) 0.84 L Vance # (Auto) 0.61 H Eos # (Auto) 0.05 Baso # (Auto) 0.01 Immature Gran # (Auto) 0.25 H PT INR APTT PTT Ratio Sodium 133 L Potassium 2.9 L Chloride 100 Carbon Dioxide 20 L Anion Gap 13 H BUN 13 Creatinine 0.59 L D Est Cr Clr Drug Dosing 145.5 eGFR 116.77 BUN/Creatinine Ratio 22.0 H Glucose 88 Calcium 7.7 L Iron Vitamin B12 Folate Procalcitonin 9.93 H Stool Occult Bld Scrn Stl C. diff Tox B Gene Urine Legionella Ag SEE NOTE SEE NOTE 08/19/24 08/19/24 08/19/24 06:38 11:30 12:04 WBC 6.38 RBC 3.22 L Hgb 9.3 L 9.8 L Hct 27.9 L 28.8 L MCV 86.6 MCH 28.9 MCHC 33.3 RDW Std Deviation 44.9 RDW Coeff of Sammy 13.9 Plt Count 227 MPV 9.6 Immature Gran % (Auto) 7.2 Neut % (Auto) 63.2 Lymph % (Auto) 17.9 Vance % (Auto) 10.0 Eos % (Auto) 1.4 Baso % (Auto) 0.3 Neut # (Auto) 4.03 Lymph # (Auto) 1.14 L Vance # (Auto) 0.64 H Eos # (Auto) 0.09 Baso # (Auto) 0.02 Immature Gran # (Auto) 0.46 H PT 13.2 H INR 1.2 H APTT 22 PTT Ratio 0.8 Sodium 137 Potassium 3.7 D Chloride 105 Carbon Dioxide 24 Anion Gap 8 BUN 13 Creatinine 0.50 L Est Cr Clr Drug Dosing 171.8 eGFR 121.52 BUN/Creatinine Ratio 26.0 H Glucose 91 Calcium 7.5 L Iron 43 Vitamin B12 > 1500 H Folate 10.90 Procalcitonin Stool Occult Bld Scrn Positive A Stl C. diff Tox B Gene Negative Cdiff Gene Urine Legionella Ag Coding Level of Care Code 90868 IN/OBS CONSULT LVL 4,60M Diagnoses Bloody diarrhea R19.7
[2024-08-19] MEDS: PANTOprazole 40 MG/10 ML SYR IV SCH (20:49)
[2024-08-20 07:13] VITALS: RESP 18
[2024-08-20 07:17] LABS: Hematocrit (blood only) 28.5 % (37.0-47.0); Hemoglobin 9.8 g/dl (12.0-16.0); Mean Corpuscular Hemoglobin 29.9 pg (25.0-34.0); Mean Corpuscular Hgb Conc 34.4 g/dL (32.0-36.0); Mean Corpuscular Volume 86.9 fL (80.0-100.0); Mean Platelet Volume 9.4 fL (9.4-12.4); Platelet Count 219 K/uL (130-400); RDW Coefficient of Variation 13.8 % (11.5-14.5); RDW Standard Deviation 43.7 fL (36.4-46.3); Red Blood Count 3.28 M/uL (4.20-5.40); White Blood Count 7.46 K/ul (4.8-10.8)
[2024-08-20 07:36] LABS: INR 1.3 (0.9-1.1); Partial Thromboplastin Ratio 0.9; Partial Thromboplastin Time 24 Seconds (21-31); Prothrombin Time 13.8 Seconds (9.0-12.0)
[2024-08-20 07:56] LABS: Calcium 7.4 mg/dl (8.6-10.3); Creatinine Clr Calc Pharmacy 195.3 ml/min; Potassium 3.7 mmol/L (3.5-5.1)
[2024-08-20 08:00] LABS: ALC (manual) 1.72 K/uL (1.2-3.4); ANC (manual) 4.63 K/uL (1.4-6.5); Basophils # (manual) 0.07 K/uL (0-0.2); Basophils % (manual) 1 %; Eosinophils # (manual) 0.07 K/uL (0-0.50); Eosinophils % (manual) 1 %; Lymphocytes # (manual) 1.72 K/uL (1.2-3.4); Lymphocytes % (manual) 23 %; Metamyelocytes # (manual) 0.37 K/uL (0-0); Metamyelocytes % (manual) 5 %; Monocytes # (manual) 0.45 K/uL (0.11-0.59); Monocytes % (manual) 6 %; Myelocytes # (manual) 0.15 K/uL (0-0); Myelocytes % (manual) 2 %; Neutrophils # (manual) 4.63 K/uL (1.40-6.50); Neutrophils % (manual) 62 %
[2024-08-20] MEDS: FAMOTIDINE 20 MG TAB PO SCH (08:52)
--- NOTE | 2024-08-20 09:00 | Gastroenterology Progress Note ---
Date of Service August 20, 2024 Assessment & Plan (1) Bloody diarrhea: Plan: Clinically resolved. Suspect related to acute infectious pneumonia with associated GI symptoms. No additional workup is necessary at this time. Okay for discharge from GI standpoint. She was given our office number to follow-up with us if symptoms recur such as diarrhea and bleeding. Admission and Anticipated Discharge Date Admission Date: August 16, 2024 Subjective Feels better today denies any diarrhea abdominal pain nausea or vomiting. No shortness of breath no chest pain. Physical Exam Physical Exam: No acute distress Respiratory rate regular Cardiac rhythm regular Abdomen soft nontender Results & Data Results & Data Vital Signs (Past 12 Hours) Vital Signs Temp Pulse Pulse Pulse Resp BP Pulse Ox 08/20/24 08:12 08/20/24 07:12 36.9 C 76 18 124/83 93 08/20/24 06:54 81 08/20/24 03:00 37.5 C 89 20 121/80 92 08/19/24 22:54 36.6 C 85 18 125/81 90 08/19/24 21:42 78 O2 Del Method 08/20/24 08:12 Room Air 08/20/24 07:12 Room Air 08/20/24 06:54 08/20/24 03:00 Room Air 08/19/24 22:54 Room Air 08/19/24 21:42 PG Care Time/CCT Total # of Minutes Spent Total Time Spent with Patient: Total time spent is greater than 50% in coordination of care (as documented) at patient's floor/unit and/or counseling patient: Coding Level of Care Code 26829 SUB INP/OBS CARE 2/35MIN Diagnoses Bloody diarrhea R19.7
[2024-08-20] MEDS: cefUROXime axetil 250 MG TABLET PO ONE (11:36)
[2024-08-20 11:50] VITALS: BP 108/79; PULSE 85; TEMP 98.6; O2SAT 95
--- NOTE | 2024-08-20 11:53 | Discharge Summary ---
Date of Service August 20, 2024 Admission HPI Per Admitting Provider The patient is a 39-year-old female with a past medical history including depression. The patient presents to the emergency department with 3 to 4 days of progressively worsening shortness of breath, dyspnea on exertion. Patient was seen at the PCPs office earlier in the day today, due to concerns regarding possible fuwr-fbnm-ecu-mouth disease. She was found of sores in her throat. She has had progressively worsening shortness of breath over the past 4 days. Due to concerns regarding worsening shortness of breath and cough productive of white sputum over the past 3 days, and a temperature of 102 F she presented to the ED for assessment today. In ED, patient had a CTA PE protocol that was negative for PE, did she did but did show an extensive right-sided pneumonia, and she was then referred for evaluation for admission Admission Exam Per Admitting Provider The patient is awake, alert and oriented 3, well developed and well nourished, normocephalic and atraumatic, lying in bed and in no acute distress. HEENT--PERRL, EOMI, mucous membranes and oropharynx sores noted Neck--supple. No JVD. No bruits. Thyroid normal, trachea midline, no adenopathy. Heart--normal S1 and S2. No murmurs, rubs or gallops. Lungs--coarse breath sounds on the right no respiratory distress, no accessory muscle use. Abdomen--normal bowel sounds and soft. Nontender. Nondistended, no hernias or masses, no organomegaly. Extremities--no cyanosis or clubbing. No edema. There are good distal pulses b/l. Dermatologic--normal skin turgor, normal color, no abnormal lymph nodes, no rash. Neurologic--cranial nerves II through XII grossly intact. Rheumatologic--normal range of motion. Psychiatric--normal affect. Principal Diagnosis Pneumonia Discharge Exam Constitutional: well-appearing, no acute distress HEENT: NCAT, no conjunctival injection CV: regular rhythm, no murmur appreciated, extremities well-perfused, no LE edema Resp: Decreased breath sounds R-lung, no increased work of breathing GI: nondistended MSK: R foot in walking boot Skin: warm, dry, no rash appreciated Neuro: alert, oriented, no focal neurologic deficit appreciated Discharge Data Allergies Allergy/AdvReac Type Severity Reaction Status Date / Time No Known Allergies Allergy Verified 06/21/24 05:26 Consultations 08/16/24 15:04 ED Decision to Admit Stat 08/16/24 19:26 Consult Pulmonology Routine 08/19/24 13:43 Consult Gastroenterology Routine Ordered Studies 08/16/24 12:08 CT angio chest PE protocol Stat Hospital Course (1) Multifocal pneumonia: (2) BRIE (acute kidney injury): (3) Hypoxemia: Plan #Multifocal pneumonia #Sepsis (Resolved) #Diarrhea - CTA of the chest negative for PE + notable for right lung pneumonia - Received one day of Linezolid, one day of Zosyn - Completed course of azithromycin - Ceftriaxone 2000 mg QD (08/17-) -- Swapped to cefuroxime 500 mg PO BID (08/19), continue 3 additional days after discharge - Blood cultures negative - C. dif negative - MRSA Nares negative - Respiratory Biofire negative - Legionella panel pending - Stool Biofire negative - Will need follow up CXR in 2-4 weeks #Acute Hematochezia/Potential Stress Gastric Ulcers - New onset bloody diarrhea as of 08/18 -- Fecal occult: positive -- C. dif testing ordered -- H/H: trending towards normal -- PT/INR ordered (elevated at 1.3 on admission); 1.2 (08/19) -- Pantoprazole 40 mg IV BID -- Famotidine 20 mg PO QD -- Seen by GI - suspect related to pneumonia, nothing to do, follow up with GI as outpatient as needed #Renal insufficiency (Resolved) #Hyponatremia/Hypokalemia/Hypocalcemia - BRIE - resolved - Hyponatremia - resolved - Hypokalemia - resolved - Hypocalcemia - 7.4 on discharge, suspect infection related, continue to monitor #Anemia - Hb 9.8 on discharge - Recommend CBC in 1-2 weeks #Hypomagnesemia (Resolved) Total Time Total Time Spent Total Time Spent (In Minutes): see attending documentation Discharge Plan Discharge Items Patient Disposition: Home - Self-Care Reason For Visit: MULTIFOCAL PNEUMONIA Discharge Diagnosis: Multifocal pneumonia Activity: Resume your previous activity Activity Comment: as tolerated Non-emergency contact: Primary Care Provider Call non-emergency contact if: you have any medication questions, your symptoms worsen and you have a fever Follow-up/Referrals: Zane Peña [Primary Care Provider] - Diet: Regular Addtl Attending Provider Instructions: You were admitted to the hospital for multifocal pneumonia. You were treated with antibiotics. While you were here you developed some diarrhea with blood. You were seen by GI and they felt that this was related to your pneumonia. They did not feel that there was anything further to do at this time. You will continue to take antibiotics for 3 days after you are discharged. You should have a follow up chest x-ray in 2-4 weeks to ensure that the pneumonia is clearing - your primary care physician can order this for you. A discharge summary will be sent to your primary care physician to ensure continuity of care. Please bring this discharge summary with you to your next office appointment so that your provider can review it at that time. Follow-up appointments: Make a follow-up appointment with your PCP within the next week. It is very important that you follow up with them shortly after discharge from the hospital. Keep all your follow-up appointments as already scheduled. If you cannot make an appointment, notify your provider. Medications: Your medication list has been reviewed and reconciled upon discharge to ensure accuracy and continuity of care. An updated list of all your medications is included with your hospital discharge paperwork. Please review this list closely, and make note of any changes. We sent a new medication called cefuroxime to your pharmacy. Take cefuroxime (500mg) one tablet twice daily for 3 days. If you have any issues filling these prescriptions, please call [phone] and ask to leave a message for Dr. Madi Ramos. Take your medications as instructed; do not skip a dose of your medicines. Make sure all of your doctors know every medicine you are taking (including nfci-ukg-zokfzrl medicines, vitamins, and supplements). Call your primary care provider before taking any new medicines (including jkpi-boi-kejldgv medicines, vitamins, and supplements), because some of these may interact with your current medications, or may make your symptoms worse. Tell your primary care provider if you cannot afford your medications. CONTACT YOUR PRIMARY CARE PROVIDER if you experience any of the following: Fever Increased shortness of breath Difficulty following your treatment plan, or difficulty taking medications CALL 911 OR GO TO THE EMERGENCY DEPARTMENT if you experience any of the following: Sudden, severe abdominal pain or nausea/vomiting Severe chest pain, or chest pain that radiates (moves) to your jaw or arm Sudden, severe shortness of breath or difficulty breathing Thank you for allowing us to participate in your care. Pending Studies at Discharge: No Stand-Alone Forms: [facility], Work/School Release Medications and DC Order Prescriptions: New cefuroxime axetil 500 mg tablet 500 mg PO BID Qty: 6 0RF Continued Mirena 20 mcg/24 hours (5 yrs) 52 mg intrauterine device 1 device IU UD bupropion HCl 300 mg tablet extended release 24 hr 300 mg PO QAM bupropion HCl 150 mg tablet extended release 24 hr 150 mg PO QAM Discharge Orders: Discharge Order (Routine); Ordered 08/20/24 Ordered By: Madi Kendrick/Other Patient Handouts: GI Bleeding Causes and Tests, Treating Diarrhea, What Is Pneumonia?, Preventing Pneumonia, Treating Pneumonia, When You Have Pneumonia, ED Diet Vomiting Diarrhea, ED Pneumonia (Adult) Admission Data Admit Date/Time: 08/16/24 15:36 Attending Provider: Anne-Marie Hardy Admit Provider: Alok Jane Primary Care Provider: Zane Peña Other Providers: Alok Jane; Carlos A Gaines; Jm Friedman I Other Interventions: Discharge Summary Assessment (RN) Last Done: 08/20/24 15:58 Supervising Physician Co-Signing Physician Notes I personally examined the patient and verified alonso points of history and exam, discussed case, and agree with decision making and plan documented by Dr. Ramos. Patient will complete antibiotics with cefuroxime, completed azithromycin. Work note provided. Recommended CXR in 2 weeks and pulmonary follow-up. Recheck blood count in 1 week and follow-up with PCP. Patient understanding of plan. Resident Activity Tracking Resident Involvement: Resident Care Provided Care Provided: Adult Hospital Medicine
[2024-08-20] MEDS ORDERED: cefUROXime axetil 250 MG TABLET PO SCH ×2 (21:00)
== END 2024-08-20 15:58 | disposition home or self-care (01) | DRG 871 ==
LOC: ED 11:59 → SUATTDRO 15:36 → EDINP 15:36 → 2S 19:27